=== PATIENT | male | born 1940 | race African-American/Black ===

== ENCOUNTER 2017-10-14 03:53 | Inpatient (IN) ==
[2017-10-14] MEDS ORDERED: Ipratropium/Albuterol Neb 3 ML IH ONE (04:08)
[2017-10-14] MEDS ORDERED: methylPREDNISolone 125 MG/2 ML VIAL IVP ONE (04:09)
--- NOTE | 2017-10-14 04:10 | Emergency Department Note ---
Disposition Clinical Impression: Acute bronchitis with bronchospasm, Hypoxia Disposition: Admitted As Inpatient Condition: Fair Time of Disposition: 05:15 SOB HPI - General Chief Complaint: ED Shortness of Breath/Dyspnea Stated Complaint: TIMOTHY Time Seen by Provider: 10/14/17 04:02 Source: patient Limitations: no limitations Nursing Notes Reviewed: Yes Vital Signs Reviewed: Yes - History of Present Illness 77-year-old male history of CAD status post bypass, hypertension, and renal disease presents to the ED for difficulty breathing. States around 1999 last night he began to feel sure breath with some difficulty in breathing. He used is inhalers to see if improved which it did not. Recently was seen by his primary care physician given in an inhaler. Reports significant smoking history which she has now stopped smoking. He is having some chest tightness associated with it. This occurred while at rest. No exertional pain. Denies any history of COPD exacerbation. He did just recently recover from a viral illness. Denies any fever, headache, nausea, vomiting or abdominal pain. He has a nonproductive dry cough. Denies any recent long-distance travel, surgery or hospitalizations. Denies any history of blood clots. Pt Subjective Complaint: shortness of breath, cough, pain with inspiration Onset (ago): hour(s) Context: recent illness Severity: moderate Treatment prior to arrival: bronchodilator Cough present: Yes Cough Description: Involuntary, Dry, Bronchospastic, Wheezy Cough Frequency: Persistent Sputum production: No Sputum Amount: None - Related Data Home oxygen amount: none Home Medications Medication Instructions Recorded Confirmed Acetaminophen [Tylenol] 325 mg PO Q6HR PRN 09/21/15 04/05/16 Aliskiren [Tekturna] 300 mg PO QAM 09/21/15 04/12/16 Allopurinol [Zyloprim] 100 mg PO QAM 09/21/15 04/12/16 Aspirin Enteric Coated [Aspirin EC] 81 mg PO QPM 09/21/15 04/12/16 Calcium Carbonate/Vitamin D3 1 each PO QAM 09/21/15 04/12/16 [Calcium 600 + D Tablet] Cholecalciferol (Vitamin D3) 2,000 unit PO BID 09/21/15 04/12/16 [Vitamin D] Clopidogrel [Plavix] 75 mg PO QPM 09/21/15 04/12/16 Docosahexanoic Acid/Epa [Fish Oil 1,000 mg PO QID 09/21/15 04/12/16 Concentrate Softgel] Gabapentin [Neurontin] 600 mg PO QID 09/21/15 04/12/16 Hydrocodone/Acetaminophen [[place] 1 tab PO Q6H PRN 09/21/15 04/12/16 5-325 Tablet] Nitroglycerin [Nitrostat] 0.4 mg SL AD PRN 09/21/15 04/12/16 Pantoprazole Sodium [Protonix] 40 mg PO QPM 09/21/15 04/12/16 Potassium Chloride 20 meq PO BID 09/21/15 04/12/16 amLODIPine [Norvasc] 10 mg PO QPM 09/21/15 04/12/16 hydroCHLOROthiazide 50 mg PO QAM 09/21/15 04/12/16 [Hydrochlorothiazide] Carvedilol [Coreg] 12.5 mg PO BID 03/21/16 04/12/16 Ferrous Sulfate [Iron] 325 mg PO DAILY 03/21/16 04/12/16 Previous Rx's Medication Instructions Recorded Isosorbide MONOnitrate (24 HR) 60 mg PO DAILY #30 tab.er.24h 09/22/15 [Imdur] Amoxicillin 875 mg PO BID #14 tablet 06/16/16 Doxycycline 100 mg PO BID #14 capsule 06/16/16 L. Acidophilus/L.bulgaricus 1 each PO BID #60 tab.chew 06/16/16 [Lactinex Chewable Tablet] Promethazine [Phenergan] 25 mg PO Q6HR PRN #10 tablet 08/08/17 Allergies Allergy/AdvReac Type Severity Reaction Status Date / Time Erythromycin Base Allergy Anaphylaxis Verified 09/21/15 16:21 ibuprofen Allergy Hives Verified 09/21/15 16:21 Tetanus Vaccines and Toxoid Allergy Anaphylaxis Verified 09/21/15 16:21 [Tetanus Vaccines & Toxoid] nsaids Allergy Hives Uncoded 09/21/15 16:21 All systems ED: reviewed and negative except as stated. Review of Systems: As Per HPI Constitutional: Denies: fever, chills Eyes: Denies: eye pain, vision change ENT ED: Denies: throat pain, congestion Cardiovascular: Reports: chest pain, dyspnea on exertion Respiratory: Reports: cough, dyspnea, wheezes. Denies: hemoptysis, stridor Gastrointestinal: Denies: abdominal pain, nausea, vomiting Genitourinary: Denies: urgency, dysuria Musculoskeletal: Denies: back pain, neck pain Integumentary: Denies: rash, abrasion Neurological: Denies: headache, weakness, numbness Psychiatric: Denies: anxiety, depression Endocrine: Denies: fatigue, heat or cold intolerance Allergic/Immunologic: Denies: facial swelling, urticaria Past Medical History - Past Medical History Attestation: Yes The following information was validated with the patient. Source: patient Medical history: Reports: coronary artery disease, CVA, hyperlipidemia, hypertension, myocardial infarction, renal disease, TIA Surgical history: Reports: carotid endarterectomy, cataract, coronary bypass ( CABG) Psychiatric history: Reports: no psych history - Social History Smoking Status: Never smoker Smokeless Tobacco Status: No Alcohol use: Reports: none Drug use: Reports: none Physical Exam - General Limitations: no limitations General appearance: alert, in no apparent distress - Head Head exam: atraumatic, normocephalic, normal inspection - Eye Eye exam: Present: normal appearance, PERRL, EOMI - ENT ENT exam: normal exam, normal oropharynx, mucous membranes moist - Neck Neck exam: Present: normal inspection, full ROM, trachea midline - Chest Chest inspection: Present: normal inspection, symmetric chest wall rise, other ( Midsternal incision consistent with bypass). Absent: tenderness, rash - Respiratory Respiratory exam: Present: respiratory distress, wheezes (Diffuse bilateral), prolonged expiratory phase - Expanded Respiratory Exam Location: wheezes: Right, Left - Cardiovascular Cardiovascular exam: Present: regular rate, normal rhythm, normal heart sounds - Abdominal Exam Abdominal exam: Present: soft, Non-Tender, normal bowel sounds. Absent: tenderness, distention, guarding, rebound, rigidity - Extremities Exam Extremities exam: Present: normal inspection, full ROM. Absent: tenderness, pedal edema - Back Exam Back exam: Present: normal inspection, full ROM. Absent: tenderness - Neurological Exam Neurological exam: Present: alert, oriented X3 - Skin Skin exam: Present: warm, dry, intact, normal color Course Course Narrative: 77-year-old male history of coronary arterial disease presents with difficulty breathing. He has some associated chest tightness as well as audible wheezing. He comes in hypoxic 90% placed on 2 L nasal cannula. He denies any history of DVT or PE. Most of his chest tightness associated with the breathing. A breathing treatment was given he reports some improvement. Concerning for possible COPD exacerbation. Patient will be given IV steroids as well as chest x-ray, basic labs in the troponin with EKG. 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 Dr. Bourgeois is his PCP. Will reassess the patient for possible admission versus discharge home. - Reevaluation(s) Reevaluation #1: On reevaluation patient has now 97% on 2 L nasal cannula. He continues to have some expiratory wheezing however much improved from earlier. Chest x-ray does not reveal any cardiopulmonary process. Findings are consistent with hyperinflation and COPD. EKG was unremarkable. Troponin 0. It appears he has underlying kidney disease with elevated creatinine 3.5. BNP is unremarkable. His blood pressure continues to come down from his initial systolic 200 to now 160 without any intervention. He continues to have a persistent dry bronchospasm cough. Will attempt to ambulate the patient without oxygen and he will likely need admission for COPD exacerbation. Patient and are in agreement with this plan. Time: 04:54 Reevaluation #2: I ambulated the patient and his oxygen saturation fell to 88% on room air. During that time he did deny any lightheadedness, chest pain or shortness of breath. However due to the hypoxia patient will need admission for better symptom control and management. Will give him [id number] duonebs treatments and steroids. Patients in agreement with this plan. Impression is acute bronchitis with bronchospasm and hypoxia. Time: 05:14 - Consultations Consultation #1: Spoke with on-call hospitalist albertina Mcclelland to admit for acute bronchitis, hypoxia, and bronchospasm. No further orders at this time Time: 05:41 Vital Signs Temperature 98.0 F 10/14/17 03:56 Pulse Rate 95 10/14/17 03:56 Respiratory Rate 24 10/14/17 03:56 Blood Pressure 191/86 10/14/17 03:56 O2 Sat by Pulse Oximetry 90 10/14/17 03:56 Temperature 98.0 F 10/14/17 03:56 Pulse Rate 73 10/14/17 05:33 Respiratory Rate 18 10/14/17 06:04 Blood Pressure 165/70 10/14/17 06:04 O2 Sat by Pulse Oximetry 97 11/21/17 05:33 Oxygen Delivery Oxygen Delivery Nasal Cannula Shortness of Breath/Dyspnea - Differential Diagnosis Likely: acute exacerbation of chronic obstructive airways disease - Medical Records Medical records reviewed: Yes I reviewed the patient's medical records. - Lab Data Lab results reviewed: Yes I reviewed the patient's lab results. Result diagrams: 10/14/17 04:15 10/14/17 04:15 Lab Results 10/14/17 10/14/17 10/14/17 Range/Units 04:15 04:15 04:15 WBC 8.9 (4.3-11.1) K/mcL RBC 3.96 L (4.19-5.50) M/mcL Hgb 11.4 L (12.9-16.9) g/dL Hct 36.0 L (37.5-50.1) % MCV 90.9 (83.0-100.0) fL MCH 28.8 (28.0-33.3) pg MCHC 31.7 (31.6-35.5) g/dL RDW 14.2 (11.5-14.5) % Plt Count 244 (140-400) K/mcL MPV 10.0 (9.4-12.4) fL Immature Gran % 0.3 (0-4) % Seg Neutrophils % 52.8 % Lymphocytes % 28.2 % Monocytes % 8.4 % Eosinophils % 9.8 % Basophils % 0.5 % Neutrophils # 4.7 (1.6-8.9) K/mcL Lymphocytes # 2.5 (0.6-4.6) K/mcL Monocytes # 0.7 (0.0-1.3) K/mcL Eosinophils # 0.9 H (0.0-0.6) K/mcL Basophils # 0.0 (0.0-0.2) K/mcL Sodium 137 (136-145) mEq/L Potassium 5.0 H (3.5-4.5) mEq/L Chloride 105 (98-109) mEq/L Carbon Dioxide 24 (19-29) mEq/L BUN 49 H (8-26) mg/dL Creatinine 3.10 H (0.72-1.25) mg/dL Est GFR ( Amer) 24 L (> 60) Est GFR (Non-Af Amer) 20 L (> 60) BUN/Creatinine Ratio 16 (6-26) Glucose 113 H (70-99) mg/dL Calculated Osmolality 298 (280-300) Lactic Acid 1.2 (0.5-2.2) mmol/L Calcium 9.5 (8.6-10.8) mg/dL Troponin I (0-0.03) ng/mL B-Natriuretic Peptide (0-100) pg/mL 10/14/17 10/14/17 Range/Units 04:15 04:15 WBC (4.3-11.1) K/mcL RBC (4.19-5.50) M/mcL Hgb (12.9-16.9) g/dL Hct (37.5-50.1) % MCV (83.0-100.0) fL MCH (28.0-33.3) pg MCHC (31.6-35.5) g/dL RDW (11.5-14.5) % Plt Count (140-400) K/mcL MPV (9.4-12.4) fL Immature Gran % (0-4) % Seg Neutrophils % % Lymphocytes % % Monocytes % % Eosinophils % % Basophils % % Neutrophils # (1.6-8.9) K/mcL Lymphocytes # (0.6-4.6) K/mcL Monocytes # (0.0-1.3) K/mcL Eosinophils # (0.0-0.6) K/mcL Basophils # (0.0-0.2) K/mcL Sodium (136-145) mEq/L Potassium (3.5-4.5) mEq/L Chloride (98-109) mEq/L Carbon Dioxide (19-29) mEq/L BUN (8-26) mg/dL Creatinine (0.72-1.25) mg/dL Est GFR ( Amer) (> 60) Est GFR (Non-Af Amer) (> 60) BUN/Creatinine Ratio (6-26) Glucose (70-99) mg/dL Calculated Osmolality (280-300) Lactic Acid (0.5-2.2) mmol/L Calcium (8.6-10.8) mg/dL Troponin I 0.01 (0-0.03) ng/mL B-Natriuretic Peptide 141 H (0-100) pg/mL - Radiology Data Radiology results reviewed: Yes I reviewed the patient's radiology results. Chest X-Ray 10/14/17 04:02 IMPRESSION: No acute cardiopulmonary process identified. D/ / Rosales Marques MD / Rosales Marques MD Interpreting Provider: Rosales Marques MD - EKG Data EKG attestation: Yes I reviewed and interpreted this EKG. EKG results narrative: EKG performed 405 sinus tachycardia 10 1 bpm normal axis, UT interval 200, no ST elevations or depression, no T wave inversion. Intervals are otherwise in normal limits. No old EKG for comparison. No acute ischemic changes. Attestation Statement - Attestation Attestation: I, Mj Barkley, examined this patient and my medical decision-making was reviewed with the MANAGER DENTAL/PA/Advanced Practice Nurse/Resident Physician. I agree with the documented findings, disposition and treatment plan as described except to the extent set forth below. 77-year-old male presents emergency Department with concerns of difficulty in breathing. Patient states symptoms have worsened over the past 2-3 days. Patient has no history of congestive heart failure although he does have a long history of tobacco abuse. Patient describes cough is nonproductive. X-ray does not show evidence of acute infiltrate. Patient feels improved after breathing treatment in emergency department. Patient however desatted to 88% during ambulation. He will be admitted to the hospital for further care and evaluation.
[2017-10-14 04:33] LABS: Basophils % 0.5 %; Eosinophils # 0.9 K/mcL (0.0-0.6); Eosinophils % 9.8 %; Hemoglobin 11.4 g/dL (12.9-16.9); Immature Granulocytes % 0.3 % (0-4); Lymphocytes # 2.5 K/mcL (0.6-4.6); Lymphocytes % 28.2 %; Mean Corpuscular HGB Conc 31.7 g/dL (31.6-35.5); Mean Corpuscular Hemoglobin 28.8 pg (28.0-33.3); Mean Corpuscular Volume 90.9 fL (83.0-100.0); Monocytes # 0.7 K/mcL (0.0-1.3); Monocytes % 8.4 %; Neutrophils # 4.7 K/mcL (1.6-8.9); Platelet Count 244 K/mcL (140-400); Red Blood Count 3.96 M/mcL (4.19-5.50); Red Cell Distribution Width 14.2 % (11.5-14.5); Segmented Neutrophils % 52.8 %
[2017-10-14 04:38] LABS: Calcium 9.5 mg/dL (8.6-10.8)
[2017-10-14] MEDS ORDERED: Acetaminophen 325 MG TABLET PO PRN (07:49)
[2017-10-14] MEDS ORDERED: Naloxone 0.4 MG/ML INJ IVP PRN (07:49)
--- NOTE | 2017-10-14 07:49 | Internal Med History&Physical ---
Date of Encounter: 10/14/17 Time of Encounter: 07:49 Assessment and Plan (1) COPD exacerbation Current visit: Yes Status: Acute 77/male Multiple medical comorbid issues described as below. Admitted with worsening shortness of breath along with cough and expectoration. Persistently hypoxic in the emergency room in spite of being on steroids/ bronchodilator. Admitted for possible new onset of COPD exacerbation. Plan: -Admitted as an inpatient. -Renal diet. -Blood cultures/repeat labs tomorrow morning. -IV levofloxacin 250 mg every day. -IV methylprednisone 40 mg every 8 hours. -Inhaled bronchodilators every 4 hours. -Close monitoring of respiratory status. -Might need outpatient pulmonary function test for further evaluation. Of note: I examined this patient in room #3 B 12 Patient's is at bedside. I have discussed the plan with the patient and his . They verbalize understanding. (2) Hypoxia Current visit: Yes Status: Acute Patient does not use home oxygen. With 2 L of oxygen, patient's saturation is 94-95 Plan: Gradually wean off the oxygen if possible (3) Hypertension Current visit: Yes Status: Acute We will resume home medication. Qualifiers: Hypertension type: essential hypertension Qualified Code(s): I10 - Essential (primary) hypertension (4) Hyperlipidemia Current visit: Yes Status: Acute We will resume home medication. Qualifiers: Hyperlipidemia type: unspecified Qualified Code(s): E78.5 - Hyperlipidemia , unspecified (5) CRI (chronic renal insufficiency) Current visit: No Status: Chronic Patient is following with Dr. Sher for his chronic renal insufficiency. Patient is going to be on levofloxacin 250 mg every day as per Dr. Sher. Plan: Nephrology consult for close monitoring of patient's creatinine since he is on nephrotoxic medication Qualifiers: Chronic kidney disease stage: stage 4 (severe) Qualified Code(s): N18.4 - Chronic kidney disease, stage 4 (severe) (6) DVT prophylaxis Current visit: Yes Status: Acute SCD. Medical decision making: This patient has a moderate to severe risk of worsening in spite of being on appropriate antibiotics/medication due to underlying complex comorbid conditions Internal Medicine - H&P: HPI Chief complaint: Short of breath Admitted From: Emergency Dept Plans for Post Hospital Care: Home History of present illness: PCP: Dr Chavira. Nephrology: Dr Sher. POA: Ms. Samira Waller: Brief PMH: Hypertension, coronary artery disease, hyperlipidemia, CKD IV, previous coronary artery bypass graft surgery, previous carotid endarterectomy, previous TIA/CVA, patient was asked smoker and stopped smoking in 1970s. History of present medical illness: Patient is comfortably sitting at home yesterday. Patient realizes that he is having difficulty in breathing around 8 PM. Patient realized that the breathing is progressively difficult along with worsening cough and occasional wheezing. Patient tried some home remedies but that did not help. So in the night patient's decided to drove him to the hospital emergency room for further evaluation. Patient denies chest pain, nausea, vomiting, abdominal pain, dizziness and diarrhea. Workup in the emergency room: Patient was evaluated in the emergency room. Basic labs were drawn. X-ray chest did not reveal any infiltrates. After the steroids and bronchodilators patient was made a walk in the emergency room. At that time patient's oxygen saturation dropped to 88%. This was the reason he was decided to hospitalize. Reason for hospitalization: Possible new onset of COPD/hyperreactive airways along with hypoxia which needs intravenous medications and close monitoring. Family history: See below Past Med Surg Social Fam HX - Past Medical History Medical history: coronary artery disease, CVA, hyperlipidemia, hypertension, myocardial infarction, renal disease, TIA Psychiatric history: no psych history - Past Surgical History Surgical History: carotid endarterectomy, cataract, coronary bypass (CABG) - Social History Smoking Status: Never smoker Smokeless Tobacco Status: No Alcohol use: none Drug use: none - Family History Father Living Status: Age at : 96 Hx Family Cardiac Disorders: No Hx Family Respiratory Disorders: No Hx Family Cancer: No Hx Family GI Disorders: No Hx Family Genitourinary Disorders: No Hx Family Endocrine Disorder: No Hx Family Musculoskeletal Disorders: No Hx Family Neuromuscular Disorders: No Hx Family Neurologic Disorders: Yes (cva) Hx Family HEENT Disorders: No Hx Family Autoimmune Disorders: No Hx Family Reproductive Disorders: No Hx Family Psychosocial Disorders: No Hx Family Medical Disorders: No Mother Adopted: No Living Status: Age at : 82 Cause of : cirrohois of the liver Hx Family Cardiac Disorders: No Hx Family Respiratory Disorders: No Hx Family Cancer: Yes (breast) Hx Family GI Disorders: (cirrohois) Hx Family Genitourinary Disorders: No Hx Family Endocrine Disorder: Yes (dm) Hx Family Musculoskeletal Disorders: No Hx Family Neuromuscular Disorders: No Hx Family Neurologic Disorders: No Hx Family HEENT Disorders: No Hx Family Autoimmune Disorders: No Hx Family Reproductive Disorders: No Hx Family Psychosocial Disorders: No Hx Family Medical Disorders: No Daughter Hx Family Cardiac Disorders: Yes Internal Medicine - H&P: Meds Acetaminophen [Tylenol] 325 mg PO Q6HR PRN 09/21/15 [History] Aliskiren [Tekturna] 300 mg PO QAM 09/21/15 [History] Allopurinol [Zyloprim] 100 mg PO QAM 09/21/15 [History] Aspirin Enteric Coated [Aspirin EC] 81 mg PO QPM 09/21/15 [History] Calcium Carbonate/Vitamin D3 [Calcium 600 + D Tablet] 1 each PO QAM 09/21/15 [ History] Cholecalciferol (Vitamin D3) [Vitamin D] 2,000 unit PO BID 09/21/15 [History] Clopidogrel [Plavix] 75 mg PO QPM 09/21/15 [History] Docosahexanoic Acid/Epa [Fish Oil Concentrate Softgel] 1,000 mg PO QID 09/21/15 [History] Gabapentin [Neurontin] 600 mg PO QID 09/21/15 [History] Hydrocodone/Acetaminophen [[place] 5-325 Tablet] 1 tab PO Q6H PRN 09/21/15 [ History] Nitroglycerin [Nitrostat] 0.4 mg SL AD PRN 09/21/15 [History] Pantoprazole Sodium [Protonix] 40 mg PO QPM 09/21/15 [History] Potassium Chloride 20 meq PO BID 09/21/15 [History] amLODIPine [Norvasc] 10 mg PO QPM 09/21/15 [History] hydroCHLOROthiazide [Hydrochlorothiazide] 50 mg PO QAM 09/21/15 [History] Isosorbide MONOnitrate (24 HR) [Imdur] 60 mg PO DAILY #30 tab.er.24h 09/22/15 [ Rx] Carvedilol [Coreg] 12.5 mg PO BID 03/21/16 [History] Ferrous Sulfate [Iron] 325 mg PO DAILY 03/21/16 [History] L. Acidophilus/L.bulgaricus [Lactinex Chewable Tablet] 1 each PO BID #60 tab.chew 06/16/16 [Rx] Albuterol Sulfate [Ventolin Hfa] 1 - 2 puff IH Q4-6H PRN 10/14/17 [History] Pravastatin Sodium [Pravachol] 40 mg PO DAILY 10/14/17 [History] 3 Allergy/AdvReac Type Severity Reaction Status Date / Time Erythromycin Base Allergy Anaphylaxis Verified 09/21/15 16:21 ibuprofen Allergy Hives Verified 09/21/15 16:21 Tetanus Vaccines and Toxoid Allergy Anaphylaxis Verified 09/21/15 16:21 [Tetanus Vaccines & Toxoid] nsaids Allergy Hives Uncoded 09/21/15 16:21 All Systems PM: A 10-system review of systems was performed and is negative for pertinent findings except as documented above in the HPI. - Constitutional Constitutional: no chills, no fever(s), no night sweats - EENT Eyes: no change in vision, no discharge, no pain, no photophobia Ears: no ear discharge, no ear pain, no tinnitus Nose, mouth and throat: no dysphagia, no nasal discharge, no neck pain, no sore throat - Cardiovascular Cardiovascular ROS IM: no chest pain, no diaphoresis, no dyspnea, no lightheadedness, no palpitations, no syncope - Respiratory Respiratory: cough, dyspnea, wheezing, chest congestion, pain with cough, no excessive phlegm production - Gastrointestinal Gastrointestinal: no abdominal pain, no diarrhea, no hematemesis, no hematochezia, no melena, no nausea, no vomiting - Musculoskeletal Musculoskeletal ROS IM: no numbness, no tingling - Integumentary Integumentary IM: no rash, no unusual bruising - Neurological Neurological ROS: no confusion, no convulsions, no focal weakness, no numbness, no tingling, no tremor(s) - Hematologic/Lymphatic Hematologic/Lymphatic: no easy bruising - Constitutional Vitals: Temp Pulse Resp BP Pulse Ox 98.3 F 75 16 181/76 95 10/14/17 06:28 10/14/17 06:28 10/14/17 06:28 10/14/17 06:28 10/14/17 07:23 General appearance: Present: A&O X 3, pleasant, no acute distress, answers questions appropriately - Head Head exam: Present: atraumatic, normocephalic - Eye Eye exam: Present: PERRL, conjuntiva pink, sclera anicteric Pupils: Present: PERRL - Neck Neck exam general surgery: Present: supple, trachea midline. Absent: lymphadenopathy - Respiratory Respiratory exam: Present: CTAB, rhonchi, wheezes. Absent: accessory muscle use , rales - Cardiovascular Cardiovascular exam: Present: RRR, +S1, +S2. Absent: diastolic murmur, gallop, rubs, systolic murmur - GI/Abdominal GI/Abdominal exam: Present: normal bowel sounds, soft, no peritoneal signs. Absent: distended, tenderness - Extremities Exam Extremities exam: Present: warm, radial pulses palpable and symmetrical. Absent : calf tenderness, cyanotic, pedal edema - Neurological Exam Neurological exam: Present: CN II-XII intact, oriented X3, no focal deficits. Absent: pronater drift, facial droop, speech deficit - Skin Skin exam: Present: dry, intact Internal Med - H&P Results - Labs CBC & Chem 7: 10/14/17 04:15 10/14/17 04:15
[2017-10-14] MEDS ORDERED: *HR* HYDROcodone/Acet 5/325 mg TABLET PO PRN (07:59)
[2017-10-14] MEDS ORDERED: Nitroglycerin 0.4 MG TAB.SUBL SL PRN (07:59)
[2017-10-14] MEDS ORDERED: Levofloxacin 250 MG/50 ML 250 MG/50 ML BAG IVPB SCH (08:00)
[2017-10-14] MEDS: Levofloxacin 250 MG/50 ML 250 MG/50 ML BAG IVPB SCH (08:51)
[2017-10-14] MEDS: MethylPREDNISolone 40 MG/ML VIAL IVP SCH ×2 (08:52→17:36)
[2017-10-14] MEDS: Isosorbide MONOnitrate (24 HR) 60 MG TAB.ER.24H PO SCH (08:52)
[2017-10-14] MEDS: hydroCHLOROthiazide 25 MG TABLET PO SCH (08:52)
[2017-10-14] MEDS: Gabapentin 300 MG CAPSULE PO SCH ×4 (08:52→19:55)
[2017-10-14] MEDS: EPA PO SCH ×4 (08:53→19:55)
[2017-10-14] MEDS: Cholecalciferol (D-3) 1,000 UNIT TABLET PO SCH ×2 (08:53→19:54)
[2017-10-14] MEDS: VITAMIN D3 PO SCH (08:53)
[2017-10-14] MEDS: ALISKIREN 300 MG PO SCH (08:53)
[2017-10-14] MEDS: CALCIUM CARBONATE PO SCH (08:53)
[2017-10-14] MEDS: DOCOSAHEXANOIC ACID PO SCH ×4 (08:53→19:55)
[2017-10-14] MEDS: Ipratropium/Albuterol Neb 3 ML IH SCH ×4 (10:27→20:29)
--- NOTE | 2017-10-14 11:37 | Nephrology Consult Note ---
<Becka Riddle Mehul - Last Filed: 10/14/17 11:44> Date of Encounter: 10/14/17 Time of Encounter: 11:31 Assessment and Plan (1) CKD (chronic kidney disease) stage 4, GFR 15-29 ml/min Status: Acute Scr 3.10, GFR 24-patient at his baseline kidney function; will continue to monitor closely Continue renal diet UA, urine protein creatinine ratio, urine microalbumin, PTH, Vitamin D 25-OH Strict I/Os Avoid nephrotoxins if possible (2) Hypertension Status: Acute per primary team May need to add Hydralazine prn for elevated blood pressure Qualifiers: Hypertension type: essential hypertension Qualified Code(s): I10 - Essential (primary) hypertension (3) COPD exacerbation Status: Acute per primary team History of Present Illness - Reason for Consult Consult date: 10/14/17 - Chief Complaint COPD exacerbation, CKD stage 4 - History of Present Illness Mr Hillman is a 77 year old male who is a patient of Dr lBack for his CKD stage 4. PMH includes hypertension, coronary artery disease, hyperlipidemia, CKD stage IV, previous coronary artery bypass graft surgery, previous carotid endarterectomy, previous TIA/CVA, patient is a former smoker who stopped smoking in 1970s. Patient was having difficulty breathing along with worsening cough and occasional wheezing. Patient tried some home remedies but that did not help. He has been admitted for COPD and nephrology has been asked to monitor his kidney function during this hospitalization. Currently patient is at his baseline kidney function. Past Med Surg Social Fam HX - Past Medical History Medical history: coronary artery disease, CVA, hyperlipidemia, hypertension, myocardial infarction, renal disease, TIA Psychiatric history: no psych history - Past Surgical History Surgical History: carotid endarterectomy, cataract, coronary bypass (CABG) - Social History Smoking Status: Never smoker Smokeless Tobacco Status: No Alcohol use: none Drug use: none - Family History Father Living Status: Age at : 96 Hx Family Cardiac Disorders: No Hx Family Respiratory Disorders: No Hx Family Cancer: No Hx Family GI Disorders: No Hx Family Genitourinary Disorders: No Hx Family Endocrine Disorder: No Hx Family Musculoskeletal Disorders: No Hx Family Neuromuscular Disorders: No Hx Family Neurologic Disorders: Yes (cva) Hx Family HEENT Disorders: No Hx Family Autoimmune Disorders: No Hx Family Reproductive Disorders: No Hx Family Psychosocial Disorders: No Hx Family Medical Disorders: No Mother Adopted: No Living Status: Age at : 82 Cause of : cirrohois of the liver Hx Family Cardiac Disorders: No Hx Family Respiratory Disorders: No Hx Family Cancer: Yes (breast) Hx Family GI Disorders: (cirrohois) Hx Family Genitourinary Disorders: No Hx Family Endocrine Disorder: Yes (dm) Hx Family Musculoskeletal Disorders: No Hx Family Neuromuscular Disorders: No Hx Family Neurologic Disorders: No Hx Family HEENT Disorders: No Hx Family Autoimmune Disorders: No Hx Family Reproductive Disorders: No Hx Family Psychosocial Disorders: No Hx Family Medical Disorders: No Daughter Hx Family Cardiac Disorders: Yes Medications and Allergies Acetaminophen [Tylenol] 325 mg PO Q6HR PRN 09/21/15 [History] Aliskiren [Tekturna] 300 mg PO QAM 09/21/15 [History] Allopurinol [Zyloprim] 100 mg PO QAM 09/21/15 [History] Aspirin Enteric Coated [Aspirin EC] 81 mg PO QPM 09/21/15 [History] Calcium Carbonate/Vitamin D3 [Calcium 600 + D Tablet] 1 each PO QAM 09/21/15 [ History] Cholecalciferol (Vitamin D3) [Vitamin D] 2,000 unit PO BID 09/21/15 [History] Clopidogrel [Plavix] 75 mg PO QPM 09/21/15 [History] Docosahexanoic Acid/Epa [Fish Oil Concentrate Softgel] 1,000 mg PO QID 09/21/15 [History] Gabapentin [Neurontin] 600 mg PO QID 09/21/15 [History] Hydrocodone/Acetaminophen [[place] 5-325 Tablet] 1 tab PO Q6H PRN 09/21/15 [ History] Nitroglycerin [Nitrostat] 0.4 mg SL AD PRN 09/21/15 [History] Pantoprazole Sodium [Protonix] 40 mg PO QPM 09/21/15 [History] Potassium Chloride 20 meq PO BID 09/21/15 [History] amLODIPine [Norvasc] 10 mg PO QPM 09/21/15 [History] hydroCHLOROthiazide [Hydrochlorothiazide] 50 mg PO QAM 09/21/15 [History] Isosorbide MONOnitrate (24 HR) [Imdur] 60 mg PO DAILY #30 tab.er.24h 09/22/15 [ Rx] Ferrous Sulfate [Iron] 325 mg PO DAILY 03/21/16 [History] L. Acidophilus/L.bulgaricus [Lactinex Chewable Tablet] 1 each PO BID #60 tab.chew 06/16/16 [Rx] Albuterol Sulfate [Ventolin Hfa] 1 - 2 puff IH Q4-6H PRN 10/14/17 [History] Pravastatin Sodium [Pravachol] 40 mg PO DAILY 10/14/17 [History] Carvedilol [Coreg] 25 mg PO BIDWM #60 tablet 10/17/17 [Rx] levoFLOXacin [Levaquin] 500 mg PO DAILY #5 tablet 10/17/17 [Rx] Polyethylene Glycol 3350 [MiraLAX] 17 gm PO DAILY #7 powd.pack 10/24/17 [Rx] 3 Allergy/AdvReac Type Severity Reaction Status Date / Time Erythromycin Base Allergy Anaphylaxis Verified 09/21/15 16:21 ibuprofen Allergy Hives Verified 09/21/15 16:21 Tetanus Vaccines and Toxoid Allergy Anaphylaxis Verified 09/21/15 16:21 [Tetanus Vaccines & Toxoid] Hydralazine AdvReac Headache Verified 10/24/17 15:53 nsaids Allergy Hives Uncoded 09/21/15 16:21 Review of Systems All Systems: reviewed and no additional remarkable complaints except as stated Constitutional: fatigue, malaise, no chills, no fever(s) Cardiovascular: no chest pain, no edema Respiratory: cough, dyspnea, dyspnea on exertion, wheezing Gastrointestinal: no vomiting Neurological: no behavioral changes Exam - Vital Signs Vital signs: Initial Vital Signs Temp Pulse Resp BP Pulse Ox 98.0 F 95 24 191/86 90 10/14/17 03:56 10/14/17 03:56 10/14/17 03:56 10/14/17 03:56 10/14/17 03:56 Vital Signs - Last 8 Hours Resp Pulse Ox 10/14/17 11:10 16 95 Intake and Output 10/13/17 10/14/17 10/14/17 23:59 07:59 15:59 Intake Total 120 / 120 Balance 120 / 120 Intake: Oral 120 / 120 Other: Meal Breakfast Percent of Meal Consumed 50% - General Appearance General appearance: well-developed, well-nourished EENT: ATNC, mucous membranes moist, hearing intact, vision intact Neck: supple Respiratory: clear Cardiology: no edema, normal S1, normal S2 Gastrointestinal: no tenderness, no guarding Integumentary: warm and dry Neurologic: alert and oriented x3 Psychiatric: mood/affect appropriate, cooperative Results - Lab Results 10/14/17 04:15 10/14/17 04:15 Most recent lab results Calcium 9.5 mg/dL (8.6-10.8) 10/14/17 04:15 Consult Discharge Plan - Plan Instructions: Chest Pain (DC) Referrals: Parker Bourgeois DO [Primary Care Provider] - 10/21/17 9:45 am Prescriptions: Carvedilol [Coreg] 25 mg PO BIDWM #60 tablet levoFLOXacin [Levaquin] 500 mg PO DAILY #5 tablet <Tianna Black - Last Filed: 10/25/17 23:57> Date of Encounter: 10/14/17 Exam - Vital Signs Vital signs: Initial Vital Signs Temp Pulse Resp BP Pulse Ox 98.0 F 95 24 191/86 90 10/14/17 03:56 10/14/17 03:56 10/14/17 03:56 10/14/17 03:56 10/14/17 03:56 Results - Lab Results 10/15/17 02:54 10/15/17 02:54 Most recent lab results Calcium 9.2 mg/dL (8.6-10.8) 10/15/17 02:54 Phosphorus 2.2 mg/dL (2.3-4.7) L 10/15/17 02:54 Magnesium 1.7 mg/dL (1.6-2.6) 10/15/17 02:54 - Attending Attestation I examined this patient and my medical decision-making was reviewed with the Resident Physician. I agree with the documented findings, disposition and treatment plan as described except to the extent set forth below. Pt seen and examined with PMH of CAD s/p CABG, PVD s/p CEA, HTN and stage 4 CKD admitted with SOB with cough diagnosed with COPD exacerbation. Renal consulted for managment of CKD which is currently at baseline. May also need cardiac workup for mildly elevated troponin. Will check PTH and vitamin D levels. Manage HTN, tekturna home medication currently being held. Can use hydralazine prn
[2017-10-14 15:31] LABS: Bilirubin,Urine Negative (Negative); Blood,Urine Negative (Negative); Clarity,Urine Clear (Clear); Color,Urine Yellow (Yellow); Glucose,Urine (UA) Normal (Normal); Ketones,Urine Negative (Negative); Leukocyte Esterase,Urine Negative (Negative); Nitrite,Urine Negative (Negative); Protein,Urine Negative (Neg-Trace); Specific Gravity,Urine 1.018 (1.010-1.025); Urobilinogen,Urine Normal (Normal)
--- NOTE | 2017-10-14 17:31 | Internal Medicine Consult Note ---
Date of Encounter: 10/14/17 Time of Encounter: 04:30 Internal Medicine - CN: HPI - Data of Consult Consult date: 10/14/17 Requesting Physician: Becka Gerber CNP - Consult Narrative History of present illness: Mr. Waller is a 77 year old male PMH HTN, CAD, HLD, CKD-IV, previous triple bypass 2011, CEA bilateral 2011, previous TIA/CVA, former smoker (quit 45 years ago) who presented to the ED with new onset/worsening shortness of breath. Persistent hypoxia while in ED, admitted, tolerating 1L now >95 and RT with duoneb therapy. Consulted due to mild spike in troponin, .07, up from .02, now back down to .04. Patient reports shortness of breath at onset without chest pain, no jaw/arm paresthesias, or exertional discomfort. Past Med Surg Social Fam HX - Past Medical History Medical history: coronary artery disease, CVA, hyperlipidemia, hypertension, myocardial infarction, renal disease, TIA Psychiatric history: no psych history - Past Surgical History Surgical History: carotid endarterectomy, cataract, coronary bypass (CABG) - Social History Smoking Status: Never smoker Smokeless Tobacco Status: No Alcohol use: none Drug use: none - Family History Father Living Status: Age at : 96 Hx Family Cardiac Disorders: No Hx Family Respiratory Disorders: No Hx Family Cancer: No Hx Family GI Disorders: No Hx Family Genitourinary Disorders: No Hx Family Endocrine Disorder: No Hx Family Musculoskeletal Disorders: No Hx Family Neuromuscular Disorders: No Hx Family Neurologic Disorders: Yes (cva) Hx Family HEENT Disorders: No Hx Family Autoimmune Disorders: No Hx Family Reproductive Disorders: No Hx Family Psychosocial Disorders: No Hx Family Medical Disorders: No Mother Adopted: No Living Status: Age at : 82 Cause of : cirrohois of the liver Hx Family Cardiac Disorders: No Hx Family Respiratory Disorders: No Hx Family Cancer: Yes (breast) Hx Family GI Disorders: (cirrohois) Hx Family Genitourinary Disorders: No Hx Family Endocrine Disorder: Yes (dm) Hx Family Musculoskeletal Disorders: No Hx Family Neuromuscular Disorders: No Hx Family Neurologic Disorders: No Hx Family HEENT Disorders: No Hx Family Autoimmune Disorders: No Hx Family Reproductive Disorders: No Hx Family Psychosocial Disorders: No Hx Family Medical Disorders: No Daughter Hx Family Cardiac Disorders: Yes Internal Medicine - CN: Meds Acetaminophen [Tylenol] 325 mg PO Q6HR PRN 09/21/15 [History] Aliskiren [Tekturna] 300 mg PO QAM 09/21/15 [History] Allopurinol [Zyloprim] 100 mg PO QAM 09/21/15 [History] Aspirin Enteric Coated [Aspirin EC] 81 mg PO QPM 09/21/15 [History] Calcium Carbonate/Vitamin D3 [Calcium 600 + D Tablet] 1 each PO QAM 09/21/15 [ History] Cholecalciferol (Vitamin D3) [Vitamin D] 2,000 unit PO BID 09/21/15 [History] Clopidogrel [Plavix] 75 mg PO QPM 09/21/15 [History] Docosahexanoic Acid/Epa [Fish Oil Concentrate Softgel] 1,000 mg PO QID 09/21/15 [History] Gabapentin [Neurontin] 600 mg PO QID 09/21/15 [History] Hydrocodone/Acetaminophen [[place] 5-325 Tablet] 1 tab PO Q6H PRN 09/21/15 [ History] Nitroglycerin [Nitrostat] 0.4 mg SL AD PRN 09/21/15 [History] Pantoprazole Sodium [Protonix] 40 mg PO QPM 09/21/15 [History] Potassium Chloride 20 meq PO BID 09/21/15 [History] amLODIPine [Norvasc] 10 mg PO QPM 09/21/15 [History] hydroCHLOROthiazide [Hydrochlorothiazide] 50 mg PO QAM 09/21/15 [History] Isosorbide MONOnitrate (24 HR) [Imdur] 60 mg PO DAILY #30 tab.er.24h 09/22/15 [ Rx] Carvedilol [Coreg] 12.5 mg PO BID 03/21/16 [History] Ferrous Sulfate [Iron] 325 mg PO DAILY 03/21/16 [History] L. Acidophilus/L.bulgaricus [Lactinex Chewable Tablet] 1 each PO BID #60 tab.chew 06/16/16 [Rx] Albuterol Sulfate [Ventolin Hfa] 1 - 2 puff IH Q4-6H PRN 10/14/17 [History] Pravastatin Sodium [Pravachol] 40 mg PO DAILY 10/14/17 [History] 3 Allergy/AdvReac Type Severity Reaction Status Date / Time Erythromycin Base Allergy Anaphylaxis Verified 09/21/15 16:21 ibuprofen Allergy Hives Verified 09/21/15 16:21 Tetanus Vaccines and Toxoid Allergy Anaphylaxis Verified 09/21/15 16:21 [Tetanus Vaccines & Toxoid] nsaids Allergy Hives Uncoded 09/21/15 16:21 Internal Medicine - CN: Exam - Constitutional Vitals: Temp Pulse Resp BP Pulse Ox 98.0 F 86 15 102/63 96 10/14/17 15:05 10/14/17 15:05 10/14/17 15:46 10/14/17 15:05 10/14/17 15:46 Internal Medicine - CN: Reslt - Labs CBC & Chem 7: 10/14/17 04:15 10/14/17 04:15 Labs: Cardiac Enzymes 10/14/17 10/14/17 Range/Units 08:29 13:46 Troponin I 0.07 H* 0.04 H* (0-0.03) ng/mL Urine 10/14/17 Range/Units 15:20 Urine Color Yellow (Yellow) Urine Clarity Clear (Clear) Urine pH 6.0 (5.0-8.0) pH Units Ur Specific [place] 1.018 (1.010-1.025) Urine Protein Negative (Neg-Trace) mg/dL Urine Glucose (UA) Normal (Normal) mg/dL Consult Discharge Plan - Plan Referrals: Parker Bourgeois DO [Primary Care Provider] -
[2017-10-14] MEDS: amLODIPine 5 MG TABLET PO SCH (17:36)
--- NOTE | 2017-10-14 17:36 | Cardiology Consult Note ---
<Matt Bradley - Last Filed: 10/14/17 18:13> Date of Encounter: 10/14/17 Time of Encounter: 04:30 Assessment and Plan (1) Elevated troponin Current Visit: Yes Status: Acute Mild elevated troponin with peak at .07 likely secondary to recent hypoxia -ECG shows sinus tachycardia with no lead V1-V3 early repolarization, no ST elevation/depression -Poor R wave progression, seen in old ECGs -Patient plan to receive pharmacologic stress test tomorrow. (2) Hypoxia Current Visit: Yes Status: Acute Hypoxia resolve on duoneb, 2L O2 nasal cannula, no use of home O2 -CXR negative for acute pulmonary process -Prophylactic/Presumptive antibiotics being given by primary team (3) Hypertension Current Visit: Yes Status: Acute Continue Amlodipine, Carvedilol, HCTZ, Imdur, Aliskiren, possibly add hydralazine (pt gets headache on hydralazine) if pressures remain elevated. Continue close monitoring, [facility], 102/63. Qualifiers: Hypertension type: essential hypertension Qualified Code(s): I10 - Essential (primary) hypertension (4) CKD (chronic kidney disease) stage 4, GFR 15-29 ml/min Current Visit: Yes Status: Acute Per Nephrology consult, close monitor kidney function, control of blood pressure. (5) Hyperlipidemia Current Visit: Yes Status: Acute Continue Atorvastatin, no dose renal dosing adjustment required, consider increasing to high-intensity 40mg if patient can tolerate, can follow-up PCP. Known history extensive atherosclerosis requiring CABGx3; bilateral CEA Qualifiers: Hyperlipidemia type: unspecified Qualified Code(s): E78.5 - Hyperlipidemia , unspecified Discussion w patient/family: The assessment and plan as outlined above was discussed with the patient and/or family members who expressed understanding and agreement. All questions were answered. Thank you for involving us in the care of your patient. Please call with any questions. History of Present Illness Consult date: 10/14/17 Requesting physician: Valentin Mortensen Consult reason: Elevated troponin, peak .07 Chief complaint: Difficulty in Breathing History of present illness: Mr. Waller is a 77 year old male PMH HTN, CAD, HLD, CKD-IV, previous triple bypass 2011, CEA bilateral 2011, previous TIA/CVA, former smoker (quit 45 years ago) who presented to the ED with new onset/worsening shortness of breath. Persistent hypoxia while in ED, admitted, tolerating 1L now >95 and RT with duoneb therapy. Consulted due to mild spike in troponin, .07, up from .02, now back down to .04. Patient reports shortness of breath at onset without chest pain, no jaw/arm paresthesias, or exertional discomfort. Past Med Surg Social Fam HX - Past Medical History Medical history: coronary artery disease, CVA, hyperlipidemia, hypertension, myocardial infarction, renal disease, TIA Psychiatric history: no psych history - Past Surgical History Surgical History: carotid endarterectomy, cataract, coronary bypass (CABG) - Social History Smoking Status: Never smoker Smokeless Tobacco Status: No Alcohol use: none Drug use: none - Family History Father Living Status: Age at : 96 Hx Family Cardiac Disorders: No Hx Family Respiratory Disorders: No Hx Family Cancer: No Hx Family GI Disorders: No Hx Family Genitourinary Disorders: No Hx Family Endocrine Disorder: No Hx Family Musculoskeletal Disorders: No Hx Family Neuromuscular Disorders: No Hx Family Neurologic Disorders: Yes (cva) Hx Family HEENT Disorders: No Hx Family Autoimmune Disorders: No Hx Family Reproductive Disorders: No Hx Family Psychosocial Disorders: No Hx Family Medical Disorders: No Mother Adopted: No Living Status: Age at : 82 Cause of : cirrohois of the liver Hx Family Cardiac Disorders: No Hx Family Respiratory Disorders: No Hx Family Cancer: Yes (breast) Hx Family GI Disorders: (cirrohois) Hx Family Genitourinary Disorders: No Hx Family Endocrine Disorder: Yes (dm) Hx Family Musculoskeletal Disorders: No Hx Family Neuromuscular Disorders: No Hx Family Neurologic Disorders: No Hx Family HEENT Disorders: No Hx Family Autoimmune Disorders: No Hx Family Reproductive Disorders: No Hx Family Psychosocial Disorders: No Hx Family Medical Disorders: No Daughter Hx Family Cardiac Disorders: Yes Medications and Allergies Acetaminophen [Tylenol] 325 mg PO Q6HR PRN 09/21/15 [History] Aliskiren [Tekturna] 300 mg PO QAM 09/21/15 [History] Allopurinol [Zyloprim] 100 mg PO QAM 09/21/15 [History] Aspirin Enteric Coated [Aspirin EC] 81 mg PO QPM 09/21/15 [History] Calcium Carbonate/Vitamin D3 [Calcium 600 + D Tablet] 1 each PO QAM 09/21/15 [ History] Cholecalciferol (Vitamin D3) [Vitamin D] 2,000 unit PO BID 09/21/15 [History] Clopidogrel [Plavix] 75 mg PO QPM 09/21/15 [History] Docosahexanoic Acid/Epa [Fish Oil Concentrate Softgel] 1,000 mg PO QID 09/21/15 [History] Gabapentin [Neurontin] 600 mg PO QID 09/21/15 [History] Hydrocodone/Acetaminophen [[place] 5-325 Tablet] 1 tab PO Q6H PRN 09/21/15 [ History] Nitroglycerin [Nitrostat] 0.4 mg SL AD PRN 09/21/15 [History] Pantoprazole Sodium [Protonix] 40 mg PO QPM 09/21/15 [History] Potassium Chloride 20 meq PO BID 09/21/15 [History] amLODIPine [Norvasc] 10 mg PO QPM 09/21/15 [History] hydroCHLOROthiazide [Hydrochlorothiazide] 50 mg PO QAM 09/21/15 [History] Isosorbide MONOnitrate (24 HR) [Imdur] 60 mg PO DAILY #30 tab.er.24h 09/22/15 [ Rx] Carvedilol [Coreg] 12.5 mg PO BID 03/21/16 [History] Ferrous Sulfate [Iron] 325 mg PO DAILY 03/21/16 [History] L. Acidophilus/L.bulgaricus [Lactinex Chewable Tablet] 1 each PO BID #60 tab.chew 06/16/16 [Rx] Albuterol Sulfate [Ventolin Hfa] 1 - 2 puff IH Q4-6H PRN 10/14/17 [History] Pravastatin Sodium [Pravachol] 40 mg PO DAILY 10/14/17 [History] 3 Allergy/AdvReac Type Severity Reaction Status Date / Time Erythromycin Base Allergy Anaphylaxis Verified 09/21/15 16:21 ibuprofen Allergy Hives Verified 09/21/15 16:21 Tetanus Vaccines and Toxoid Allergy Anaphylaxis Verified 09/21/15 16:21 [Tetanus Vaccines & Toxoid] nsaids Allergy Hives Uncoded 09/21/15 16:21 All Systems Review: A 10-system review of systems was performed and is negative for pertinent findings except as documented above in the HPI. - Constitutional Constitutional: no fatigue, no fever(s), no stops breathing during sleep - Cardiovascular Cardiovascular: no chest pain at rest, no chest pain with exertion, no diaphoresis, no lightheadedness, no syncope - Respiratory Respiratory: cough, dyspnea - Neurological Neurological: no abnormal speech, no dizziness, no numbness, no tingling Physical Examination Vital Signs, Last 4 Hours Temp Pulse Resp BP Pulse Ox 10/14/17 15:46 15 96 10/14/17 15:05 98.0 F 86 15 102/63 96 General: Conversant Neck: Other (no JVD, no carotid bruit) Cardiac: Other (RRR, nml S1/S2, no S3/S4, no murmur) Lungs: Other (normal chest wall expansion, no diminished breath sounds, clear bilaterally) Neuro: Other (no evidence of facial droop or slurred speech) Skin: Other (no petechiae) Extremities: Other (normal capillary refill, no edema) Results 10/14/17 04:15 10/14/17 04:15 Lab Results 10/14/17 10/14/17 08:29 13:46 Troponin I 0.07 H* 0.04 H* Consult Discharge Plan - Plan Referrals: Parker Bourgeois, [Primary Care Provider] - 10/21/17 9:45 am <Chris Rodriguez - Last Filed: 10/15/17 14:08> Date of Encounter: 10/15/17 - Attending Attestation I examined this patient and my medical decision-making was reviewed with the Resident Physician. I agree with the documented findings, disposition and treatment plan as described except to the extent set forth below. 1. Elevated troponin, most likely due to demand ischemia, however with multiple risk factors and hx severe three vessel dx post CABG, will order nuclear perfusion imaging for AM. Risks and benefits discussed, agrees to proceed. Further recomendations pending results of stress imaging. 2. CAD - severe triple vessel CAD, post CABG x 3 3. Hypertension; controlled on current meds 4. CKD state 4, appreciate nephrology consult. Assessment and Plan Discussion w patient/family: The assessment and plan as outlined above was discussed with the patient and/or family members who expressed understanding and agreement. All questions were answered. Thank you for involving us in the care of your patient. Please call with any questions. History of Present Illness History of present illness: Mr. Waller is a 77 year old male All Systems Review: A 10-system review of systems was performed and is negative for pertinent findings except as documented above in the HPI. Physical Examination Vital Signs, Last 4 Hours Temp Pulse Resp BP Pulse Ox 10/15/17 11:43 98.7 F 83 16 151/71 95 Results 10/15/17 02:54 10/15/17 02:54 Lab Results 10/14/17 10/14/17 10/15/17 13:46 20:21 02:54 WBC 10.1 Hgb 10.3 L Hct 32.2 L Plt Count 200 INR APTT Sodium Potassium Chloride Carbon Dioxide BUN Creatinine Glucose Calcium Magnesium Total Bilirubin AST ALT Alkaline Phosphatase Troponin I 0.04 H* 0.03 B-Natriuretic Peptide 10/15/17 10/15/17 10/15/17 02:54 02:54 02:54 WBC Hgb Hct Plt Count INR 1.2 APTT 26.4 Sodium 137 Potassium 4.9 H Chloride 106 Carbon Dioxide 21 BUN 51 H Creatinine 3.16 H Glucose 139 H Calcium 9.2 Magnesium 1.7 Total Bilirubin 0.3 AST 21 ALT 18 Alkaline Phosphatase 58 Troponin I B-Natriuretic Peptide 177 H
[2017-10-14] MEDS: Aspirin Enteric Coated 81 MG Tablet PO SCH (17:37)
--- NOTE | 2017-10-14 20:39 | Electrocardiograph Report ---
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
[2017-10-14] MEDS ORDERED: Ipratropium/Albuterol Neb 3 ML IH PRN (20:54)
[2017-10-15] MEDS: MethylPREDNISolone 40 MG/ML VIAL IVP SCH ×2 (00:03→10:25)
[2017-10-15 04:06] LABS: Basophils % 0.1 %; Eosinophils % 0.1 %; Hematocrit 32.2 % (37.5-50.1); Hemoglobin 10.3 g/dL (12.9-16.9); Immature Granulocytes % 0.5 % (0-4); Lymphocytes # 0.7 K/mcL (0.6-4.6); Lymphocytes % 7.3 %; Mean Corpuscular Hemoglobin 28.9 pg (28.0-33.3); Mean Corpuscular Volume 90.2 fL (83.0-100.0); Mean Platelet Volume 10.3 fL (9.4-12.4); Monocytes # 0.1 K/mcL (0.0-1.3); Monocytes % 1.4 %; Neutrophils # 9.1 K/mcL (1.6-8.9); Platelet Count 200 K/mcL (140-400); Red Blood Count 3.57 M/mcL (4.19-5.50); Red Cell Distribution Width 14.1 % (11.5-14.5); Segmented Neutrophils % 90.6 %
[2017-10-15 04:08] LABS: INR 1.2
[2017-10-15 04:10] LABS: Activated Partial Thrombo Time 26.4 Seconds (26.0-36.0)
[2017-10-15 04:20] LABS: Albumin 3.1 g/dL (3.5-5.0); Albumin/Globulin Ratio 0.8 (1.1-2.2); Bilirubin,Total 0.3 mg/dL (0.2-1.2); Calcium 9.2 mg/dL (8.6-10.8); Chol/HDL Ratio 3.7 (0-4.9); Globulin 4.1 g/dL (2.4-3.5); Magnesium 1.7 mg/dL (1.6-2.6); Phosphorous 2.2 mg/dL (2.3-4.7); Potassium 4.9 mEq/L (3.5-4.5); Total Protein 7.2 g/dL (6.0-8.3)
[2017-10-15] MEDS ORDERED: Regadenoson 0.4 MG/5 ML SYRINGE IVP ONE (06:13)
[2017-10-15] MEDS: Levofloxacin 250 MG/50 ML 250 MG/50 ML BAG IVPB SCH (08:24)
[2017-10-15] MEDS: EPA PO SCH ×4 (08:32→20:07)
[2017-10-15] MEDS: DOCOSAHEXANOIC ACID PO SCH ×4 (08:32→20:07)
[2017-10-15] MEDS: ALISKIREN 300 MG PO SCH (08:32)
[2017-10-15] MEDS: CALCIUM CARBONATE PO SCH (08:32)
[2017-10-15] MEDS: VITAMIN D3 PO SCH (08:32)
[2017-10-15] MEDS: hydroCHLOROthiazide 25 MG TABLET PO SCH (10:26)
[2017-10-15] MEDS: Gabapentin 300 MG CAPSULE PO SCH ×4 (10:26→20:54)
[2017-10-15] MEDS: Isosorbide MONOnitrate (24 HR) 60 MG TAB.ER.24H PO SCH (10:26)
[2017-10-15] MEDS: Cholecalciferol (D-3) 1,000 UNIT TABLET PO SCH ×2 (10:26→20:54)
[2017-10-15] MEDS ORDERED: Acetaminophen 325 MG TABLET PO PRN (14:35)
--- NOTE | 2017-10-15 15:10 | Cardiology Progress Note ---
<Matt Bradley - Last Filed: 10/15/17 15:23> Date of Encounter: 10/15/17 Time of Encounter: 11:30 Assessment and Plan (1) Elevated troponin Current Visit: Yes Status: Acute Mild elevated troponin with peak at .07 likely secondary to recent hypoxia, now resolved -ECG shows sinus tachycardia with no lead V1-V3 early repolarization, no ST elevation/depression -Poor R wave progression, seen in old ECGs P: Nuclear medicine scan performed this morning, pharmacologic stress postponed to later date. Likely to perform outpatient. (2) Hypoxia Current Visit: Yes Status: Acute Hypoxia resolve on duoneb, 2L O2 nasal cannula, no use of home O2 -CXR negative for acute pulmonary process -Prophylactic/Presumptive antibiotics being given by primary team (3) Hypertension Current Visit: Yes Status: Acute Continue Amlodipine, Carvedilol, HCTZ, Imdur, [place] P: Recommend add hydralazine (although pt gets headache on hydralazine) if pressures remain elevated. Continue close monitoring. Qualifiers: Hypertension type: essential hypertension Qualified Code(s): I10 - Essential (primary) hypertension (4) CKD (chronic kidney disease) stage 4, GFR 15-29 ml/min Current Visit: Yes Status: Acute Per Nephrology consult, close monitor kidney function, Cr remains at baseline 3.1, control of blood pressure. (5) Hyperlipidemia Current Visit: Yes Status: Acute Continue Atorvastatin, no dose renal dosing adjustment required, consider increasing to high-intensity 40mg if patient can tolerate, can follow-up PCP. Known history extensive atherosclerosis requiring CABGx3; bilateral CEA Qualifiers: Hyperlipidemia type: unspecified Qualified Code(s): E78.5 - Hyperlipidemia , unspecified Discussion w patient/family: The assessment and plan as outlined above was discussed with the patient and/or family members who expressed understanding and agreement. All questions were answered. Thank you for involving us in the care of your patient. Please call with any questions. Subjective Principal diagnosis: Elevated troponin secondary to hypoxia Interval history: Mr. Waller came back from this morning's nuclear medicine structural evaluation , reports lab unable to perform pharm stress test portion--may perform in an outpatient setting. Reports no relapse of breathing difficulty. No chest pain, lightheadedness. Mild persisting cough. Objective Vital Signs, Last 4 Hours Temp Pulse Resp BP Pulse Ox 10/15/17 11:43 98.7 F 83 16 151/71 95 General: Conversant HEENT: Atraumatic Neck: Other (no bruit heard on carotid exam bilaterally) Cardiac: Other (regular rate and rhythm, no murmurs, gallops, ) Lungs: Other (normal chest wall expansion, no diminished breath sounds) Neuro: Other (intact dermatome sensation 4 distinct dermatomes UE and LE, history of stroke, no current focal deficits) Results 10/15/17 02:54 10/15/17 02:54 Lab Results 10/14/17 10/15/17 10/15/17 20:21 02:54 02:54 WBC 10.1 Hgb 10.3 L Hct 32.2 L Plt Count 200 INR 1.2 APTT 26.4 Sodium Potassium Chloride Carbon Dioxide BUN Creatinine Glucose Calcium Magnesium Total Bilirubin AST ALT Alkaline Phosphatase Troponin I 0.03 B-Natriuretic Peptide 10/15/17 10/15/17 02:54 02:54 WBC Hgb Hct Plt Count INR APTT Sodium 137 Potassium 4.9 H Chloride 106 Carbon Dioxide 21 BUN 51 H Creatinine 3.16 H Glucose 139 H Calcium 9.2 Magnesium 1.7 Total Bilirubin 0.3 AST 21 ALT 18 Alkaline Phosphatase 58 Troponin I B-Natriuretic Peptide 177 H Consult Discharge Plan - Plan Referrals: Parker Bourgeois, [Primary Care Provider] - 10/21/17 9:45 am <Chris Rodriguez - Last Filed: 10/15/17 17:53> Date of Encounter: 10/15/17 Assessment and Plan (1) Chest pain Current Visit: No Status: Acute I examined this patient and my medical decision-making was reviewed with the Resident Physician. I agree with the documented findings, disposition and treatment plan as described except to the extent set forth below. 1. Chest pain - has resolved, initial stress imaging today, need stress study tomorrow or Friday, 2. Elevated troponin, minimal, most consistent with demand ischemia, hypoxia, await completion of stress imaging to evaluate ischemic substrate. 3. Hypoxia - has resolved Qualifiers: Chest pain type: other chest pain Qualified Code(s): R07.89 - Other chest pain Discussion w patient/family: The assessment and plan as outlined above was discussed with the patient and/or family members who expressed understanding and agreement. All questions were answered. Thank you for involving us in the care of your patient. Please call with any questions. Objective Vital Signs, Last 4 Hours Temp Pulse Resp BP Pulse Ox 10/15/17 16:14 98.1 F 85 15 182/63 94 Results 10/15/17 02:54 10/15/17 02:54 Lab Results 10/14/17 10/15/17 10/15/17 20:21 02:54 02:54 WBC 10.1 Hgb 10.3 L Hct 32.2 L Plt Count 200 INR 1.2 APTT 26.4 Sodium Potassium Chloride Carbon Dioxide BUN Creatinine Glucose Calcium Magnesium Total Bilirubin AST ALT Alkaline Phosphatase Troponin I 0.03 B-Natriuretic Peptide 10/15/17 10/15/17 02:54 02:54 WBC Hgb Hct Plt Count INR APTT Sodium 137 Potassium 4.9 H Chloride 106 Carbon Dioxide 21 BUN 51 H Creatinine 3.16 H Glucose 139 H Calcium 9.2 Magnesium 1.7 Total Bilirubin 0.3 AST 21 ALT 18 Alkaline Phosphatase 58 Troponin I B-Natriuretic Peptide 177 H
--- NOTE | 2017-10-15 16:19 | Nephrology Progress Note ---
Date of Encounter: 10/15/17 Time of Encounter: 16:00 Subjective Principal diagnosis: Elevated troponin secondary to hypoxia Objective - Vital Signs Vital signs: Vital Signs Temp Pulse Resp BP Pulse Ox 10/15/17 16:14 98.1 F 85 15 182/63 94 10/15/17 11:43 98.7 F 83 16 151/71 95 10/15/17 06:55 98.1 F 91 16 199/84 94 10/15/17 02:54 98.3 F 90 16 182/78 95 10/14/17 23:08 98.5 F 96 16 187/77 95 10/14/17 20:29 16 96 10/14/17 18:51 98.1 F 90 18 175/75 95 Intake and Output 10/15/17 10/15/17 10/15/17 07:59 15:59 23:59 Other: Meal Lunch Percent of Meal Consumed 10% # Voids 1 Weight 89.3 kg Patient Weight 10/15/17 23:59 Weight 89.3 kg - Lab 10/15/17 02:54 10/15/17 02:54 Most recent lab results Calcium 9.2 mg/dL (8.6-10.8) 10/15/17 02:54 Phosphorus 2.2 mg/dL (2.3-4.7) L 10/15/17 02:54 Magnesium 1.7 mg/dL (1.6-2.6) 10/15/17 02:54 Consult Discharge Plan - Plan Referrals: Parker Bourgeois DO [Primary Care Provider] - 10/21/17 9:45 am
[2017-10-15] MEDS: Aspirin Enteric Coated 81 MG Tablet PO SCH (17:09)
[2017-10-15] MEDS: amLODIPine 5 MG TABLET PO SCH (17:09)
--- NOTE | 2017-10-15 18:27 | Internal Med Progress Note ---
Date of Encounter: 10/15/17 Time of Encounter: 13:00 - Assessment and plan (1) Elevated troponin Current Visit: Yes Status: Acute Assessment and plan: -Cardiology has been consulted and pharmacological stress test scheduled for . (2) COPD exacerbation Current Visit: Yes Status: Acute Assessment and plan: -Improving; change IV Solu-Medrol to oral prednisone and will continue Levaquin in addition to DuoNeb's. (3) Hypertension Current Visit: Yes Status: Acute Assessment and plan: -Continue home medications. Qualifiers: Hypertension type: essential hypertension Qualified Code(s): I10 - Essential (primary) hypertension (4) Hyperlipidemia Current Visit: Yes Status: Acute Assessment and plan: -Continue home medications. Qualifiers: Hyperlipidemia type: unspecified Qualified Code(s): E78.5 - Hyperlipidemia , unspecified (5) CKD (chronic kidney disease) stage 4, GFR 15-29 ml/min Current Visit: Yes Status: Acute Assessment and plan: -Stable; continue to monitor. (6) DVT prophylaxis Current Visit: Yes Status: Acute Assessment and plan: Subcutaneous heparin. - Subjective Interval history: No acute events overnight. - Constitutional Vitals: Temp Pulse Resp BP Pulse Ox 98.1 F 85 15 182/63 94 10/15/17 16:14 10/15/17 16:14 10/15/17 16:14 10/15/17 16:14 10/15/17 16:14 General appearance: Present: A&O X 3, pleasant, no acute distress, answers questions appropriately - Respiratory Respiratory exam: Present: CTAB. Absent: accessory muscle use, rales, rhonchi, wheezes - Cardiovascular Cardiovascular exam: Present: RRR, +S1, +S2. Absent: diastolic murmur, gallop, rubs, systolic murmur Internal Medicine: Result - Labs CBC & Chem 7: 10/15/17 02:54 10/15/17 02:54 Labs: Short CBC 10/15/17 Range/Units 02:54 WBC 10.1 (4.3-11.1) K/mcL Hgb 10.3 L (12.9-16.9) g/dL Hct 32.2 L (37.5-50.1) % Plt Count 200 (140-400) K/mcL Neutrophils # 9.1 H (1.6-8.9) K/mcL BMP 10/15/17 02:54 Sodium 137 Potassium 4.9 H Chloride 106 Carbon Dioxide 21 BUN 51 H Creatinine 3.16 H Glucose 139 H Calcium 9.2 Cardiac Enzymes 10/14/17 Range/Units 20:21 Troponin I 0.03 (0-0.03) ng/mL Liver Function 10/15/17 Range/Units 02:54 Total Bilirubin 0.3 (0.2-1.2) mg/dL AST 21 (5-34) Units/L ALT 18 (0-55) Units/L Alkaline Phosphatase 58 (38-126) Units/L Albumin 3.1 L (3.5-5.0) g/dL - ABG Interpretation ABG results: PT/INR, D-dimer PT 13.0 Seconds (9.4-12.1) H 10/15/17 02:54 Consult Discharge Plan - Plan Referrals: Parker Bourgeois DO [Primary Care Provider] - 10/21/17 9:45 am
[2017-10-16] MEDS: *HR* Heparin 5,000 UNIT/ML VIAL SQ SCH ×2 (05:54→18:46)
[2017-10-16] MEDS: predniSONE 20 MG TABLET PO SCH (08:03)
[2017-10-16] MEDS: Levofloxacin 250 MG/50 ML 250 MG/50 ML BAG IVPB SCH (08:03)
[2017-10-16] MEDS: Gabapentin 300 MG CAPSULE PO SCH ×4 (08:03→21:59)
[2017-10-16] MEDS: hydroCHLOROthiazide 25 MG TABLET PO SCH (08:03)
[2017-10-16] MEDS: Isosorbide MONOnitrate (24 HR) 60 MG TAB.ER.24H PO SCH (08:04)
[2017-10-16] MEDS: CALCIUM CARBONATE PO SCH (08:04)
[2017-10-16] MEDS: DOCOSAHEXANOIC ACID PO SCH (08:04)
[2017-10-16] MEDS: VITAMIN D3 PO SCH (08:04)
[2017-10-16] MEDS: EPA PO SCH (08:04)
[2017-10-16] MEDS: Cholecalciferol (D-3) 1,000 UNIT TABLET PO SCH ×2 (08:04→22:00)
[2017-10-16] MEDS: ALISKIREN 300 MG PO SCH (08:04)
--- NOTE | 2017-10-16 10:16 | Cardiology Progress Note ---
Date of Encounter: 10/16/17 Time of Encounter: 10:10 Assessment and Plan (1) Elevated troponin Current Visit: Yes Status: Acute Per Cardiology: Mild elevated troponin with peak at 0.07 likely secondary to recent hypoxia and HTN. Subsequent trops improved and then negative. CP Free. Patient completed resting images yesterday. Unfortunately, patient had long-acting nitrate today and cannot proceed with stress images. Upon review of records patient had long- acting nitrate yesterday as well, however after resting images (those pictures are ok). I had lengthy discussion with patient and he remains agreeable to stay and complete test tomorrow. Will attempt to optimize BP control as well. (2) Hypertension Current Visit: Yes Status: Acute Per Cardiology: Remains elevated. HR in 70's. Will increase BB. May need another agent. Qualifiers: Hypertension type: essential hypertension Qualified Code(s): I10 - Essential (primary) hypertension (3) Hypoxia Current Visit: Yes Status: Acute Per Cardiology: Hypoxia resolve on duoneb, 2L O2 nasal cannula, no use of home O2. CXR negative for acute pulmonary process. SOB improved. Discussion w patient/family: The assessment and plan as outlined above was discussed with the patient who expressed understanding and agreement. All questions were answered. Thank you for involving us in the care of your patient. Please call with any questions. Subjective Principal diagnosis: Elevated troponin secondary to hypoxia Interval history: Patient denies any chest pain, shortness of breath, palpitations. Objective Vital Signs, Last 4 Hours Temp Pulse Resp BP Pulse Ox 10/16/17 07:01 97.6 F 77 16 183/80 94 General: Conversant, No Apparent Distress HEENT: Atraumatic, Normocephaly, Mucus Membranes Moist Neck: No JVD, Normal carotid pulses Cardiac: Reg Rate and Rhythm, Normal S1 and S2, No Murmur Lungs: Normal Breath Sounds, No Wheeze, Rales, Rhonchi Neuro: Alert and responsive, No focal deficits noted Abdomen: Soft, Non-Tender Skin: No rashes noted on visualized skin Musculoskeletal: No Chest Wall Tenderness Extremities: No Clubbing, No Cyanosis, No Edema, Normal Pulses Results 10/15/17 02:54 10/15/17 02:54 Laboratory Tests 01/29/16 10/14/17 10/14/17 14:14 04:15 04:15 INR Creatinine 3.55 H 3.10 H Troponin I 0.01 10/14/17 10/14/17 10/14/17 08:29 13:46 20:21 INR Creatinine Troponin I 0.07 H* 0.04 H* 0.03 10/15/17 10/15/17 02:54 02:54 INR 1.2 Creatinine 3.16 H Troponin I ITS Impressions Chest X-Ray 10/14/17 04:02 IMPRESSION: No acute cardiopulmonary process identified. D/ / Rosales Marques MD / Rosales Marques MD Interpreting Provider: Rosales Marques MD Active Medications Acetaminophen (Tylenol) 650 mg PO Q6HR PRN PRN Reason: Fever Stop: 04/16/18 14:36 Last Admin: 10/15/17 14:41 Dose: 650 mg Hydrocodone Bitart/Acetaminophen ([place] 5-325 Mg) 1 tab PO Q6H PRN PRN Reason: Pain Stop: 04/15/18 08:00 Albuterol/Ipratropium (Duoneb) 3 ml IH [id number] PRN PRN Reason: Shortness Of Breath/Wheezing Stop: 04/15/18 08:01 Allopurinol (Zyloprim) 100 mg PO QAM [facility] Stop: 04/15/18 09:01 Last Admin: 10/16/17 08:03 Dose: 100 mg Amlodipine Besylate (Norvasc) 10 mg PO QPM [facility] PRN Reason: Protocol Stop: 04/15/18 18:01 Last Admin: 10/15/17 17:09 Dose: 10 mg Aspirin (Aspirin Ec) 81 mg PO QPM [facility] Stop: 04/15/18 18:01 Last Admin: 10/15/17 17:09 Dose: 81 mg Atorvastatin Calcium (Lipitor) 10 mg PO HS [facility] Stop: 04/15/18 21:01 Last Admin: 10/15/17 20:54 Dose: 10 mg Carvedilol (Coreg) 12.5 mg PO BID [facility] PRN Reason: Protocol Stop: 04/15/18 09:01 Last Admin: 10/16/17 08:03 Dose: 12.5 mg Clopidogrel Bisulfate (Plavix) 75 mg PO QPM [facility] Stop: 04/15/18 08:01 Last Admin: 10/15/17 17:09 Dose: 75 mg Ferrous Sulfate (Ferrous Sulfate) 325 mg PO DAILY [facility] Stop: 04/15/18 09:01 Last Admin: 10/16/17 08:04 Dose: 325 mg Gabapentin (Neurontin) 600 mg PO QID [facility] Stop: 04/15/18 09:01 Last Admin: 10/16/17 08:03 Dose: 600 mg Heparin Sodium (Porcine) (Heparin) 5,000 unit SQ Q12HCO [facility] Stop: 04/17/18 06:01 Last Admin: 10/16/17 05:54 Dose: 5,000 unit Hydrochlorothiazide (Hydrochlorothiazide) 50 mg PO QAM [facility] PRN Reason: Protocol Stop: 04/15/18 09:01 Last Admin: 10/16/17 08:03 Dose: 50 mg Levofloxacin/Dextrose (Levaquin Premix 250 Mg/50 Ml) 250 mg in 50 mls @ 50 mls/ hr IVPB DAILY [facility] PRN Reason: Protocol Stop: 04/15/18 09:01 Last Admin: 10/16/17 08:03 Dose: 50 mls/hr Isosorbide Mononitrate (Imdur) 60 mg PO DAILY [facility] Stop: 04/15/18 09:01 Last Admin: 10/16/17 08:04 Dose: 60 mg Naloxone HCl (Narcan) 0.4 mg IVP Q2MIN PRN PRN Reason: Opioid Reversal Stop: 04/15/18 07:50 Nitroglycerin (Nitroglycerin) 0.4 mg SL AD PRN PRN Reason: Chest Pain Stop: 04/15/18 08:00 Omeprazole (Prilosec) 20 mg PO QPM [facility] Stop: 04/15/18 18:01 Last Admin: 10/15/17 17:09 Dose: 20 mg Pharmacy Profile Note (Patient Taking Own Medication) 1 each PO QAM [facility] Stop: 04/15/18 09:01 Last Admin: 10/16/17 08:04 Dose: Not Given Pharmacy Profile Note (Patient Taking Own Medication) 1 each PO QAM [facility] Stop: 04/15/18 09:01 Last Admin: 10/16/17 08:04 Dose: Not Given Pharmacy Profile Note (Patient Taking Own Medication) 1 each PO QID [facility] Stop: 04/15/18 09:01 Last Admin: 10/16/17 08:04 Dose: Not Given Potassium Chloride (Potassium Chloride) 20 meq PO BID [facility] Stop: 04/15/18 09:01 Last Admin: 10/16/17 08:03 Dose: 20 meq Prednisone (Prednisone) 40 mg PO DAILY [facility] Stop: 04/17/18 09:01 Last Admin: 10/16/17 08:03 Dose: 40 mg Vitamin D (Vitamin D) 2,000 unit PO BID [facility] Stop: 04/15/18 09:01 Last Admin: 10/16/17 08:04 Dose: 2,000 unit - Imaging and Cardiology Stress Test: pending Consult Discharge Plan - Plan Referrals: Parker Bourgeois DO [Primary Care Provider] - 10/21/17 9:45 am
[2017-10-16] MEDS: hydrALAZINE 10 MG TABLET PO SCH ×2 (12:27→21:59)
--- NOTE | 2017-10-16 15:39 | Nephrology Progress Note ---
Date of Encounter: 10/16/17 Subjective Principal diagnosis: Elevated troponin secondary to hypoxia Objective - Vital Signs Vital signs: Vital Signs Temp Pulse Resp BP Pulse Ox 10/16/17 14:32 97.9 F 71 16 154/66 94 10/16/17 10:40 97.6 F 69 16 173/82 95 10/16/17 07:01 97.6 F 77 16 183/80 94 10/16/17 03:12 97.9 F 73 16 168/67 95 10/15/17 22:43 98.1 F 85 18 161/67 93 10/15/17 18:53 97.8 F 83 18 165/73 94 10/15/17 16:14 98.1 F 85 15 182/63 94 Intake and Output 10/15/17 10/16/17 10/16/17 23:59 07:59 15:59 Intake Total 50 / 50 Balance 50 / 50 Intake: IV Fluids 50 / 50 Levaquin Premix 250 MG/50 ML 50 / 50 250 mg In 50 ml @ 50 mls/hr IVPB DAILY [facility] Rx#:[id number] Other: Meal NPO for breakfast. # Voids 1 1 # Bowel Movements 1 Weight 90.1 kg Patient Weight 10/16/17 23:59 Weight 90.1 kg - Lab 10/15/17 02:54 10/15/17 02:54 Most recent lab results Calcium 9.2 mg/dL (8.6-10.8) 10/15/17 02:54 Phosphorus 2.2 mg/dL (2.3-4.7) L 10/15/17 02:54 Magnesium 1.7 mg/dL (1.6-2.6) 10/15/17 02:54 Consult Discharge Plan - Plan Referrals: Parker Bourgeois DO [Primary Care Provider] - 10/21/17 9:45 am
[2017-10-16] MEDS: Aspirin Enteric Coated 81 MG Tablet PO SCH (18:46)
[2017-10-16] MEDS: amLODIPine 5 MG TABLET PO SCH (18:46)
--- NOTE | 2017-10-16 19:56 | Internal Med Progress Note ---
Date of Encounter: 10/16/17 Time of Encounter: 13:00 - Assessment and plan (1) Elevated troponin Current Visit: Yes Status: Acute Assessment and plan: -Cardiology has been consulted and pharmacological stress test scheduled for . (2) COPD exacerbation Current Visit: Yes Status: Acute Assessment and plan: -Improving; continue prednisone and Levaquin in addition to DuoNeb's. (3) Hypertension Current Visit: Yes Status: Acute Assessment and plan: -Blood pressures continues to be elevated so Coreg was increased per cardiology this afternoon. -Continue to monitor Qualifiers: Hypertension type: essential hypertension Qualified Code(s): I10 - Essential (primary) hypertension (4) Hyperlipidemia Current Visit: Yes Status: Acute Assessment and plan: -Continue home medications. Qualifiers: Hyperlipidemia type: unspecified Qualified Code(s): E78.5 - Hyperlipidemia , unspecified (5) CKD (chronic kidney disease) stage 4, GFR 15-29 ml/min Current Visit: Yes Status: Acute Assessment and plan: -Stable; continue to monitor. (6) DVT prophylaxis Current Visit: Yes Status: Acute Assessment and plan: Subcutaneous heparin. - Subjective Interval history: Patient's blood pressure elevated overnight and this morning. - Constitutional Vitals: Temp Pulse Resp BP Pulse Ox 97.9 F 71 16 154/66 94 10/16/17 14:32 10/16/17 14:32 10/16/17 14:32 10/16/17 14:32 10/16/17 14:32 General appearance: Present: A&O X 3, pleasant, no acute distress, answers questions appropriately - Cardiovascular Cardiovascular exam: Present: RRR, +S1, +S2. Absent: diastolic murmur, gallop, rubs, systolic murmur Internal Medicine: Result - Labs CBC & Chem 7: 10/15/17 02:54 10/15/17 02:54 - ABG Interpretation ABG results: PT/INR, D-dimer PT 13.0 Seconds (9.4-12.1) H 10/15/17 02:54 Consult Discharge Plan - Plan Referrals: Parker Bourgeois DO [Primary Care Provider] - 10/21/17 9:45 am
[2017-10-16] MEDS: MethylPREDNISolone 40 MG/ML VIAL IVP SCH (22:38)
[2017-10-17] MEDS: hydrALAZINE 10 MG TABLET PO SCH ×3 (05:12→14:36)
[2017-10-17] MEDS: *HR* Heparin 5,000 UNIT/ML VIAL SQ SCH (05:12)
[2017-10-17] MEDS ORDERED: Regadenoson 0.4 MG/5 ML SYRINGE IVP ONE (06:23)
--- NOTE | 2017-10-17 06:27 | Cardiology Progress Note ---
Date of Encounter: 10/17/17 Time of Encounter: 06:30 Assessment and Plan (1) Elevated troponin Current Visit: Yes Status: Acute Per Cardiology: Mild elevated troponin with peak at 0.07 likely secondary to recent hypoxia and HTN. No cardiac Rehab C/S warranted. Subsequent trops improved and then negative. CP Free. Stress test results pending today. Will resume Imdur after. (2) Hypertension Current Visit: Yes Status: Acute Per Cardiology: Remains elevated 170's - 180's after increase of BB and addition of Hydralazine , will titrate. Nephrology following, appreciate any further recs. HR in 60's-70 's. Qualifiers: Hypertension type: essential hypertension Qualified Code(s): I10 - Essential (primary) hypertension (3) Hypoxia Current Visit: Yes Status: Acute Per Cardiology: Hypoxia resolved on duoneb, 2L O2 nasal cannula, no use of home O2. CXR negative for acute pulmonary process. SOB improved. Discussion w patient/family: The assessment and plan as outlined above was discussed with the patient and family who expressed understanding and agreement. All questions were answered. Thank you for involving us in the care of your patient. Please call with any questions. Subjective Principal diagnosis: Elevated troponin secondary to hypoxia Interval history: Patient reports no CP, SOB improved, no palps. Objective Vital Signs, Last 4 Hours Temp Pulse Resp BP Pulse Ox 10/17/17 04:08 98.7 F 71 16 174/78 96 General: Conversant, No Apparent Distress HEENT: Atraumatic, Normocephaly, Mucus Membranes Moist Neck: No JVD, Normal carotid pulses Cardiac: Reg Rate and Rhythm, Normal S1 and S2, No Murmur Lungs: Normal Breath Sounds, Other (few scattered rhonchi) Neuro: Alert and responsive, No focal deficits noted Abdomen: Soft, Non-Tender Skin: No rashes noted on visualized skin Musculoskeletal: No Chest Wall Tenderness Extremities: No Clubbing, No Cyanosis, No Edema, Normal Pulses Results 10/15/17 02:54 10/15/17 02:54 Active Medications Acetaminophen (Tylenol) 650 mg PO Q6HR PRN PRN Reason: Fever Stop: 04/16/18 14:36 Last Admin: 10/15/17 14:41 Dose: 650 mg Hydrocodone Bitart/Acetaminophen ([place] 5-325 Mg) 1 tab PO Q6H PRN PRN Reason: Pain Stop: 04/15/18 08:00 Albuterol/Ipratropium (Duoneb) 3 ml IH [id number] PRN PRN Reason: Shortness Of Breath/Wheezing Stop: 04/15/18 08:01 Allopurinol (Zyloprim) 100 mg PO QAM [facility] Stop: 04/15/18 09:01 Last Admin: 10/16/17 08:03 Dose: 100 mg Amlodipine Besylate (Norvasc) 10 mg PO QPM [facility] PRN Reason: Protocol Stop: 04/15/18 18:01 Last Admin: 10/16/17 18:46 Dose: 10 mg Aspirin (Aspirin Ec) 81 mg PO QPM [facility] Stop: 04/15/18 18:01 Last Admin: 10/16/17 18:46 Dose: 81 mg Atorvastatin Calcium (Lipitor) 10 mg PO HS [facility] Stop: 04/15/18 21:01 Last Admin: 10/16/17 21:59 Dose: 10 mg Carvedilol (Coreg) 25 mg PO BIDWM [facility] PRN Reason: Protocol Stop: 04/17/18 17:01 Last Admin: 10/16/17 18:46 Dose: 25 mg Clopidogrel Bisulfate (Plavix) 75 mg PO QPM [facility] Stop: 04/15/18 08:01 Last Admin: 10/16/17 18:46 Dose: 75 mg Ferrous Sulfate (Ferrous Sulfate) 325 mg PO DAILY [facility] Stop: 04/15/18 09:01 Last Admin: 10/16/17 08:04 Dose: 325 mg Gabapentin (Neurontin) 600 mg PO QID [facility] Stop: 04/15/18 09:01 Last Admin: 10/16/17 21:59 Dose: 600 mg Heparin Sodium (Porcine) (Heparin) 5,000 unit SQ Q12HCO [facility] Stop: 04/17/18 06:01 Last Admin: 10/17/17 05:12 Dose: 5,000 unit Hydralazine HCl (Hydralazine) 25 mg PO Q8H [facility] Stop: 04/18/18 06:28 Last Admin: 10/17/17 06:47 Dose: 25 mg Hydrochlorothiazide (Hydrochlorothiazide) 50 mg PO QAM [facility] PRN Reason: Protocol Stop: 04/15/18 09:01 Last Admin: 11/23/17 08:03 Dose: 50 mg Levofloxacin/Dextrose (Levaquin Premix 250 Mg/50 Ml) 250 mg in 50 mls @ 50 mls/ hr IVPB DAILY [facility] PRN Reason: Protocol Stop: 04/15/18 09:01 Last Admin: 10/16/17 08:03 Dose: 50 mls/hr Naloxone HCl (Narcan) 0.4 mg IVP Q2MIN PRN PRN Reason: Opioid Reversal Stop: 04/15/18 07:50 Nitroglycerin (Nitroglycerin) 0.4 mg SL AD PRN PRN Reason: Chest Pain Stop: 04/15/18 08:00 Omeprazole (Prilosec) 20 mg PO QPM [facility] Stop: 04/15/18 18:01 Last Admin: 10/16/17 18:46 Dose: 20 mg Potassium Chloride (Potassium Chloride) 20 meq PO BID [facility] Stop: 04/15/18 09:01 Last Admin: 10/16/17 22:00 Dose: 20 meq Prednisone (Prednisone) 40 mg PO DAILY [facility] Stop: 04/17/18 09:01 Last Admin: 10/16/17 08:03 Dose: 40 mg Vitamin D (Vitamin D) 2,000 unit PO BID [facility] Stop: 04/15/18 09:01 Last Admin: 10/16/17 22:00 Dose: 2,000 unit - Imaging and Cardiology Stress Test: pending Consult Discharge Plan - Plan Referrals: Parker Bourgeois DO [Primary Care Provider] - 10/21/17 9:45 am
[2017-10-17] MEDS: Gabapentin 300 MG CAPSULE PO SCH ×2 (11:43→11:52)
[2017-10-17] MEDS ORDERED: Isosorbide MONOnitrate (24 HR) 60 MG TAB.ER.24H PO SCH (11:45)
[2017-10-17] MEDS: Cholecalciferol (D-3) 1,000 UNIT TABLET PO SCH (11:52)
[2017-10-17] MEDS: predniSONE 20 MG TABLET PO SCH (11:52)
[2017-10-17] MEDS: Levofloxacin 250 MG/50 ML 250 MG/50 ML BAG IVPB SCH (11:52)
[2017-10-17] MEDS: hydroCHLOROthiazide 25 MG TABLET PO SCH (11:52)
[2017-10-17 13:07] VITALS: BP 167/76
--- NOTE | 2017-10-17 15:06 | Discharge Summary ---
Date of Encounter: 10/17/17 Time of Encounter: 11:00 - Discharge Diagnosis (1) Elevated troponin Priority: Secondary Status: Acute (2) COPD exacerbation Priority: Primary Status: Acute (3) Hypertension Priority: Secondary Status: Acute Qualifiers: Hypertension type: essential hypertension Qualified Code(s): I10 - Essential (primary) hypertension (4) Hyperlipidemia Priority: Secondary Status: Acute Qualifiers: Hyperlipidemia type: unspecified Qualified Code(s): E78.5 - Hyperlipidemia , unspecified (5) CKD (chronic kidney disease) stage 4, GFR 15-29 ml/min Priority: Secondary Status: Acute - Discharge Medications Prescriptions: Carvedilol [Coreg] 25 mg PO BIDWM #60 tablet levoFLOXacin [Levaquin] 500 mg PO DAILY #5 tablet Home Medications: Acetaminophen [Tylenol] 325 mg PO Q6HR PRN 09/21/15 [History] Aliskiren [Tekturna] 300 mg PO QAM 09/21/15 [History] Allopurinol [Zyloprim] 100 mg PO QAM 09/21/15 [History] Aspirin Enteric Coated [Aspirin EC] 81 mg PO QPM 09/21/15 [History] Calcium Carbonate/Vitamin D3 [Calcium 600 + D Tablet] 1 each PO QAM 09/21/15 [ History] Cholecalciferol (Vitamin D3) [Vitamin D] 2,000 unit PO BID 09/21/15 [History] Clopidogrel [Plavix] 75 mg PO QPM 09/21/15 [History] Docosahexanoic Acid/Epa [Fish Oil Concentrate Softgel] 1,000 mg PO QID 09/21/15 [History] Gabapentin [Neurontin] 600 mg PO QID 09/21/15 [History] Hydrocodone/Acetaminophen [[place] 5-325 Tablet] 1 tab PO Q6H PRN 09/21/15 [ History] Nitroglycerin [Nitrostat] 0.4 mg SL AD PRN 09/21/15 [History] Pantoprazole Sodium [Protonix] 40 mg PO QPM 09/21/15 [History] Potassium Chloride 20 meq PO BID 09/21/15 [History] amLODIPine [Norvasc] 10 mg PO QPM 09/21/15 [History] hydroCHLOROthiazide [Hydrochlorothiazide] 50 mg PO QAM 09/21/15 [History] Isosorbide MONOnitrate (24 HR) [Imdur] 60 mg PO DAILY #30 tab.er.24h 09/22/15 [ Rx] Ferrous Sulfate [Iron] 325 mg PO DAILY 03/21/16 [History] L. Acidophilus/L.bulgaricus [Lactinex Chewable Tablet] 1 each PO BID #60 tab.chew 06/16/16 [Rx] Albuterol Sulfate [Ventolin Hfa] 1 - 2 puff IH Q4-6H PRN 10/14/17 [History] Pravastatin Sodium [Pravachol] 40 mg PO DAILY 10/14/17 [History] Carvedilol [Coreg] 25 mg PO BIDWM #60 tablet 10/17/17 [Rx] levoFLOXacin [Levaquin] 500 mg PO DAILY #5 tablet 10/17/17 [Rx] Allergies/Adverse Reactions: 3 Allergy/AdvReac Type Severity Reaction Status Date / Time Erythromycin Base Allergy Anaphylaxis Verified 09/21/15 16:21 ibuprofen Allergy Hives Verified 09/21/15 16:21 Tetanus Vaccines and Toxoid Allergy Anaphylaxis Verified 09/21/15 16:21 [Tetanus Vaccines & Toxoid] nsaids Allergy Hives Uncoded 09/21/15 16:21 Procedures/tests Complete & Pending: Procedures Performed prior 72 hours Category Date Time Status NM eric perf SPECT multi [NM] Routine Exams 10/14/17 18:02 Taken SP pharm nuclear stress Routine Y 10/17/17 07:00 Completed Date of admission: 10/14/17 07:49 Primary care physician: Parker Bourgeois DO Consults: 10/14/17 08:25 Consult to Nephrology [CONS] Routine Consulting Provider: Kidney Marissa/ALYSHA/KYLIE/SOLITARIO Reason for Consult: CKD IV/on levofloxacin/close monitoring of renal function Call Completed: Yes 10/15/17 08:18 Consult to Cardiology [CONS] Routine Comment: Consulting Provider: Cardiology Marissa Reason for Consult: elevated troponin Call Completed: Yes - Patient Status Disposition: Home, Self-Care Condition: Fair - Discharge Instructions Follow Up With: Parker Bourgeois DO [Primary Care Provider] - 10/21/17 9:45 am Hospital course: Patient is a 77-year-old male with past medical history significant for hypertension, coronary artery disease, hyperlipidemia, CKD 4 and prior CABG who presented to the ER on 10/14/17 with shortness of breath and cough. Patient reported that his breathing had become progressively difficult along with worsening cough and occasional wheezing. Patient tried some home remedies but that did not help. So in the night patient's decided to drive him to the hospital emergency room for further evaluation. In the ER, chest x-ray was negative for any infiltrates but patient was found to be hypoxic with O2 sats of 88%. He was also found to have mild elevated cardiac biomarkers. Patient was admitted to medical floor for management of COPD exacerbation and evaluation of elevated cardiac biomarkers. During patients hospital stay his shortness of breath resolved with treatment of COPD exacerbation with IV antibiotics and IV steroids in addition to aerosolized medications. Cardiology was consulted with recommendations for a nuclear stress test which was negative for ischemia. Patient will follow up with primary care provider for management of hypertension and will continue oral antibiotics for 5 days for treatment of COPD exacerbation. - Time Spent with Patient Total time spent providing and/or coordinating discharge services: Less than 30 minutes - Constitutional Vitals: Temp Pulse Resp BP Pulse Ox 98.0 F 61 17 167/76 96 10/17/17 13:03 10/17/17 13:03 10/17/17 13:03 10/17/17 13:03 10/17/17 13:03 General appearance: Present: A&O X 3, pleasant, no acute distress, answers questions appropriately - Cardiovascular Cardiovascular exam: Present: RRR, +S1, +S2. Absent: diastolic murmur, gallop, rubs, systolic murmur
== END 2017-10-17 16:33 | disposition home or self-care (01) | DRG 191 ==
LOC: EMEROO 03:53 → 3BNU 03:53 → SUATTDRO 07:49
PROVIDERS: ADMIT Internal Medicine; ATTEND Hospitalist

== ENCOUNTER 2018-12-01 04:00 | Observation (INO) ==
[2018-12-01] MEDS ORDERED: Aspirin 81 MG TAB.CHEW PO ONE ×2 (04:07→05:35)
--- NOTE | 2018-12-01 04:15 | Emergency Department Note ---
Disposition Clinical Impression: Chest pain Qualifiers: Chest pain type: unspecified Qualified Code(s): R07.9 - Chest pain, unspecified Hypertension Qualifiers: Hypertension type: unspecified Qualified Code(s): I10 - Essential (primary) hypertension Chronic kidney disease Qualifiers: Chronic kidney disease stage: unspecified stage Qualified Code(s): N18.9 - Chronic kidney disease, unspecified Disposition: Admitted As Inpatient Condition: Fair Referrals: NONE,PCP [Primary Care Provider] - Time of Disposition: 06:49 General Adult HPI - General Stated complaint: Shortness of Breath Time Seen by Provider: 12/01/18 04:07 Source: patient, EMS Mode of arrival: ambulatory Limitations: no limitations Nursing Notes Reviewed: Yes Vital Signs Reviewed: Yes - History of Present Illness HPI Narrative: 78-year-old male with a history of CAD, COPD hypertension presents for evaluation of chest pain. Patient also notes shortness of breath. Patient states that symptoms began approximately 2 hours prior to ED arrival. Stated he was awake. Describing anterior chest pain without specific radiation. No diaphoresis. Patient states he felt nauseous no vomiting. Patient states he do es have a prior history of bypass. Patient notes some shortness of breath related the pain. Patient also notes a nonproductive cough. No fevers. No abdominal pain. Patient states that he was recently seen at the [facility] and was told that he had diverticulitis. No history of DVT or PE. Pain Scale: 9 - Related Data Home Medications Medication Instructions Recorded Confirmed Acetaminophen [Tylenol] 325 mg PO Q6HR PRN 09/21/15 10/14/17 Aliskiren [Tekturna] 300 mg PO QAM 09/21/15 10/14/17 Allopurinol [Zyloprim] 100 mg PO QAM 09/21/15 10/14/17 Aspirin Enteric Coated [Aspirin EC] 81 mg PO QPM 09/21/15 10/14/17 Calcium Carbonate/Vitamin D3 1 each PO QAM 09/21/15 10/14/17 [Calcium 600 + D Tablet] Cholecalciferol (Vitamin D3) 2,000 unit PO BID 09/21/15 10/14/17 [Vitamin D] Clopidogrel [Plavix] 75 mg PO QPM 09/21/15 10/14/17 Docosahexanoic Acid/Epa [Fish Oil 1,000 mg PO QID 09/21/15 10/14/17 Concentrate Softgel] Gabapentin [Neurontin] 600 mg PO QID 09/21/15 10/14/17 Hydrocodone/Acetaminophen [[place] 1 tab PO Q6H PRN 09/21/15 10/14/17 5-325 Tablet] Nitroglycerin [Nitrostat] 0.4 mg SL AD PRN 09/21/15 10/14/17 Pantoprazole Sodium [Protonix] 40 mg PO QPM 09/21/15 10/14/17 Potassium Chloride 20 meq PO BID 09/21/15 10/14/17 amLODIPine [Norvasc] 10 mg PO QPM 09/21/15 10/14/17 hydroCHLOROthiazide 50 mg PO QAM 09/21/15 10/14/17 [Hydrochlorothiazide] Ferrous Sulfate [Iron] 325 mg PO DAILY 03/21/16 10/14/17 Albuterol Sulfate [Ventolin Hfa] 1 - 2 puff IH Q4-6H PRN 10/14/17 10/14/17 Pravastatin Sodium [Pravachol] 40 mg PO DAILY 10/14/17 10/14/17 Previous Rx's Medication Instructions Recorded Isosorbide MONOnitrate (24 HR) 60 mg PO DAILY #30 tab.er.24h 09/22/15 [Imdur] L. Acidophilus/L.bulgaricus 1 each PO BID #60 tab.chew 06/16/16 [Lactinex Chewable Tablet] Carvedilol [Coreg] 25 mg PO BIDWM #60 tablet 10/17/17 levoFLOXacin [Levaquin] 500 mg PO DAILY #5 tablet 10/17/17 Polyethylene Glycol 3350 [MiraLAX] 17 gm PO DAILY #7 powd.pack 10/24/17 Allergies Allergy/AdvReac Type Severity Reaction Status Date / Time Erythromycin Base Allergy Anaphylaxis Verified 11/04/17 02:32 ibuprofen Allergy Hives Verified 11/04/17 02:32 Tetanus Vaccines and Toxoid Allergy Anaphylaxis Verified 11/04/17 02:32 [Tetanus Vaccines & Toxoid] Hydralazine AdvReac Headache Verified 11/04/17 02:32 nsaids Allergy Hives Uncoded 11/04/17 02:32 All systems ED: reviewed and negative except as stated. Constitutional: Denies: fever Cardiovascular: Reports: chest pain Respiratory: Reports: cough, dyspnea. Denies: sputum production Gastrointestinal: Reports: nausea. Denies: abdominal pain, vomiting Past Medical History - Past Medical History Source: patient Medical history: Reports: coronary artery disease, CVA, hyperlipidemia, hypertension, myocardial infarction, renal disease, TIA Surgical history: Reports: carotid endarterectomy, cataract, coronary bypass (CABG) Psychiatric history: Reports: no psych history - Social History Smoking Status: Former smoker Smokeless Tobacco Status: No Alcohol use: Reports: none Drug use: Reports: none Physical Exam - General Limitations: no limitations General appearance: alert, in no apparent distress - Head Head exam: atraumatic, normocephalic, normal inspection - Eye Eye exam: Present: normal appearance, PERRL, EOMI - ENT ENT exam: normal exam, normal oropharynx, mucous membranes moist - Neck Neck exam: Present: normal inspection, full ROM, trachea midline - Chest Chest inspection: Present: normal inspection, symmetric chest wall rise - Respiratory Respiratory exam: Present: normal lung sounds bilaterally. Absent: respiratory distress - Cardiovascular Cardiovascular exam: Present: regular rate, normal rhythm - Abdominal Exam Abdominal exam: Present: soft, Non-Tender. Absent: guarding, rebound - Extremities Exam Extremities exam: Present: normal inspection. Absent: pedal edema - Back Exam Back exam: Present: normal inspection - Neurological Exam Neurological exam: Present: alert, oriented X3, CN II-XII intact - Skin Skin exam: Present: warm, dry, intact, normal color Course Course Narrative: Patient seen and examined. Patient will get cardiology pulmonary screening evaluation with EKG, chest x-ray troponin. Patient was noted to be hypertensive. - Reevaluation(s) Reevaluation #1: Patient's chest pain and blood pressure per with nitroglycerin. Time: 05:27 Reevaluation #2: Patient seen resting currently. Patient's blood pressure improved. Patient w ill get into Nitropaste. Time: 05:52 Vital Signs Temperature 98.4 F 12/01/18 04:04 Pulse Rate 89 12/01/18 04:04 Respiratory Rate 20 12/01/18 04:04 Blood Pressure 204/101 12/01/18 04:04 O2 Sat by Pulse Oximetry 100 12/01/18 04:04 Temperature 98.4 F 12/01/18 04:04 Pulse Rate 88 12/01/18 05:33 Respiratory Rate 15 12/01/18 05:33 Blood Pressure 143/82 12/01/18 05:33 O2 Sat by Pulse Oximetry 97 12/01/18 05:33 Oxygen Delivery Oxygen Delivery Room Air Medical Decision Making - MDM Narrative Medical decision making narrative: Patient presented for concerns of chest pain. Patient has of cardiac history with bypass. Patient was hypertensive complaining of anterior retrosternal chest pain no radiation. Concerning for unstable angina. Patient's pain improved as well as blood pressure were with 3 nitroglycerin. Ultimately patient still had some residual pain was placed on nitroglycerin paste. Patient received aspirin. Patient's symptoms are not consistent with aortic dissection or PE. Patient would likely need continued cardiopulmonary evaluation with serial troponins and blood pressure monitoring. Patient will come for said plan of care and inpatient admission. Patient's labs show evidence of chronic kidney disease. - Medical Records Medical records reviewed: Yes I reviewed the patient's medical records. 2017 Impression: Pharmacologic stress ECG is negative for ischemia at level of heart rate achieved. Gated EF = 65%. Medium sized, moderate intensity, fixed basal to mid inferior/inferolateral defect suggestive of a prior infarct. Perfusion imaging was negative for ischemia. - Lab Data Lab results reviewed: Yes I reviewed the patient's lab results. Result diagrams: 12/01/18 04:37 12/01/18 04:37 Lab Results 12/01/18 12/01/18 12/01/18 Range/Units 04:37 04:37 04:37 WBC 5.7 (4.3-11.1) K/mcL RBC 4.26 (4.19-5.50) M/mcL Hgb 12.6 L (12.9-16.9) g/dL Hct 37.6 (37.5-50.1) % MCV 88.3 (83.0-100.0) fL MCH 29.6 (28.0-33.3) pg MCHC 33.5 (31.6-35.5) g/dL RDW 14.3 (11.5-14.5) % Plt Count 204 (140-400) K/mcL MPV 9.6 (9.4-12.4) fL Immature Gran % 0.0 (0-4) % Seg Neutrophils % 55.9 % Lymphocytes % 29.1 % Monocytes % 9.9 % Eosinophils % 4.4 % Basophils % 0.7 % Neutrophils # 3.2 (1.6-8.9) K/mcL Lymphocytes # 1.7 (0.6-4.6) K/mcL Monocytes # 0.6 (0.0-1.3) K/mcL Eosinophils # 0.3 (0.0-0.6) K/mcL Basophils # 0.0 (0.0-0.2) K/mcL PT 13.2 H (9.4-12.1) Seconds INR 1.2 Sodium (136-145) mEq/L Potassium (3.5-5.1) mEq/L Chloride (98-107) mEq/L Carbon Dioxide (23-29) mEq/L BUN (8-23) mg/dL Creatinine (0.70-1.30) mg/dL Est GFR ( Amer) (> 60) Est GFR (Non-Af Amer) (> 60) BUN/Creatinine Ratio (6-26) Glucose (70-105) mg/dL Calculated Osmolality (280-300) Calcium (8.6-10.3) mg/dL Troponin I (< 0.04) ng/mL B-Natriuretic Peptide 154 H (Less than 100) pg/mL 12/01/18 Range/Units 04:37 WBC (4.3-11.1) K/mcL RBC (4.19-5.50) M/mcL Hgb (12.9-16.9) g/dL Hct (37.5-50.1) % MCV (83.0-100.0) fL MCH (28.0-33.3) pg MCHC (31.6-35.5) g/dL RDW (11.5-14.5) % Plt Count (140-400) K/mcL MPV (9.4-12.4) fL Immature Gran % (0-4) % Seg Neutrophils % % Lymphocytes % % Monocytes % % Eosinophils % % Basophils % % Neutrophils # (1.6-8.9) K/mcL Lymphocytes # (0.6-4.6) K/mcL Monocytes # (0.0-1.3) K/mcL Eosinophils # (0.0-0.6) K/mcL Basophils # (0.0-0.2) K/mcL PT (9.4-12.1) Seconds INR Sodium 140 (136-145) mEq/L Potassium 4.2 (3.5-5.1) mEq/L Chloride 106 (98-107) mEq/L Carbon Dioxide 21 L (23-29) mEq/L BUN 22 (8-23) mg/dL Creatinine 2.70 H (0.70-1.30) mg/dL Est GFR ( Amer) 28 L (> 60) Est GFR (Non-Af Amer) 23 L (> 60) BUN/Creatinine Ratio 8 (6-26) Glucose 116 H (70-105) mg/dL Calculated Osmolality 294 (280-300) Calcium 10.0 (8.6-10.3) mg/dL Troponin I < 0.03 (< 0.04) ng/mL B-Natriuretic Peptide (Less than 100) pg/mL - Radiology Data Radiology results reviewed: Yes I reviewed the patient's radiology results. Chest X-Ray 12/01/18 04:07 IMPRESSION: No acute findings. D/ / Silver Clinton / Silver Clinton Interpreting Provider: Silver Clinton - EKG Data EKG #1 EKG attestation: Yes I reviewed and interpreted this EKG. EKG shows normal: sinus rhythm Rate: normal Rhythm: NSR [place]/QRS: normal P waves: LAE Heart block present: 1st Degree When compared to previous EKG there are: no significant changes Interpretation: no acute changes, nonspecific ST-T wave changes S.B.A.RFan - Lynne.[email or web address] Situation: Demographics Background: Presenting Complaint Assessment: Vital Signs, Course and respsone to treatment, Patient/Family Expectation Recommendation: Barrier(s) to disposition, Recommendation based on pending studies, treatments, or consults S.B.A.RFan Report Given to: Dr. Brenner SFanB.ABrian Repor Time: 06:31 Attestation Statement - Attestation Attestation: Resident Attestation: I examined this patient and my medical decision making was reviewed with the Resident Physician. I agree with the documented findings, disposition and treatment plan as described except to the extent set forth below. We independently had [id number] contact with the patient. Patient presented for evaluation of chest pain that started last night. Patient describes as a heaviness in the center of his chest that did get better with nitroglycerin given within the emergency department. Patient does have a history of prior cardiac bypass surgery. No acute distress, regular rhythm, clear to auscultation bilaterally,Peripheral edema Patient's workup unremarkable within the emergency department. Given patient's history as well as improving symptoms with nitroglycerin he will be admitted for further cardiac evaluation.
[2018-12-01] MEDS ORDERED: Ondansetron 4 MG/2 ML VIAL IVP ONE (04:23)
[2018-12-01] MEDS ORDERED: Ondansetron 4 MG/2 ML VIAL ONE (04:25)
[2018-12-01] MEDS: Nitroglycerin 0.4 MG TAB.SUBL SL ONE ×3 (04:29→04:50)
[2018-12-01 04:46] LABS: Basophils % 0.7 %; Eosinophils # 0.3 K/mcL (0.0-0.6); Eosinophils % 4.4 %; Hematocrit 37.6 % (37.5-50.1); Hemoglobin 12.6 g/dL (12.9-16.9); Lymphocytes # 1.7 K/mcL (0.6-4.6); Lymphocytes % 29.1 %; Mean Corpuscular HGB Conc 33.5 g/dL (31.6-35.5); Mean Corpuscular Hemoglobin 29.6 pg (28.0-33.3); Mean Corpuscular Volume 88.3 fL (83.0-100.0); Mean Platelet Volume 9.6 fL (9.4-12.4); Monocytes # 0.6 K/mcL (0.0-1.3); Monocytes % 9.9 %; Neutrophils # 3.2 K/mcL (1.6-8.9); Platelet Count 204 K/mcL (140-400); Red Blood Count 4.26 M/mcL (4.19-5.50); Red Cell Distribution Width 14.3 % (11.5-14.5); Segmented Neutrophils % 55.9 %
[2018-12-01 04:53] LABS: INR 1.2; Prothrombin Time 13.2 Seconds (9.4-12.1)
[2018-12-01 05:08] LABS: BUN/Creatinine Ratio 8 (6-26); Blood Urea Nitrogen 22 mg/dL (8-23); Carbon Dioxide 21 mEq/L (23-29); Chloride 106 mEq/L (98-107); Glucose 116 mg/dL (70-105); Osmolality,Calculated 294 (280-300); Potassium 4.2 mEq/L (3.5-5.1); Sodium 140 mEq/L (136-145); Troponin I < 0.03 ng/mL (< 0.04); eGFR For Non-African Americans 23 (> 60)
[2018-12-01] MEDS ORDERED: Nitroglycerin 1 INCH/GM PACKET TP ONE (05:33)
[2018-12-01] MEDS ORDERED: Nitroglycerin 0.4 MG TAB.SUBL SL PRN (09:11)
[2018-12-01] MEDS ORDERED: *HR* HYDROcodone/Acet 5/325 mg TABLET PO PRN (09:11)
[2018-12-01] MEDS ORDERED: Acetaminophen 325 MG TABLET PO PRN (09:11)
[2018-12-01] MEDS ORDERED: Isosorbide MONOnitrate (24 HR) 60 MG TAB.ER.24H PO SCH (09:15)
[2018-12-01] MEDS ORDERED: hydroCHLOROthiazide 25 MG TABLET PO SCH (09:15)
[2018-12-01] MEDS ORDERED: levoFLOXacin 500 MG TABLET PO SCH (09:15)
[2018-12-01] MEDS ORDERED: Naloxone 0.4 MG/ML INJ IVP PRN (09:17)
--- NOTE | 2018-12-01 09:28 | Internal Med History&Physical ---
Date of Encounter: 12/01/18 Time of Encounter: 09:23 Internal Medicine - H&P: HPI Chief complaint: chest pain Admitted From: Home Plans for Post Hospital Care: Home History of present illness: Mr. Waller is a 78 year old male who has history of COPD CAD stated post CABG, Hypertension, diverticulitis presenting emergency room for chest pain. Chest pain started last night 2 AM while he was watching TV. Pains located in the mid of chest, no radiation, pressure-like 8 out of 10 and lasts for few hours until he got to the emergency room, took nitroglycerin and aspirin. He denies diaphoresis dizziness. He does have some nausea now resolved. He he had a stress test in September 2017 was negative but had prior infarct. His negative troponin, negative chest x-ray. patient is going to be admitted for chest pain workup. Past Med Surg Social Fam HX - Past Medical History Medical history: coronary artery disease, CVA, hyperlipidemia, hypertension, m yocardial infarction, renal disease, TIA Additional medical history: stg 4 renal Psychiatric history: no psych history - Past Surgical History Surgical History: carotid endarterectomy, cataract, coronary bypass (CABG) Additional surgical history: cabag triple - Social History Smoking Status: Former smoker Smokeless Tobacco Status: No Alcohol use: none Drug use: none - Family History Father Living Status: Hx Family Cardiac Disorders: No Hx Family Respiratory Disorders: No Hx Family Cancer: No Hx Family GI Disorders: No Hx Family Endocrine Disorder: No Hx Family Neuromuscular Disorders: No Hx Family Neurologic Disorders: Yes (cva) Hx Family HEENT Disorders: No Hx Family Autoimmune Disorders: No Mother Adopted: No Living Status: Hx Family Cardiac Disorders: No Hx Family Respiratory Disorders: No Hx Family Cancer: Yes (breast) Hx Family GI Disorders: (cirrohois) Hx Family Endocrine Disorder: Yes (dm) Hx Family Neuromuscular Disorders: No Hx Family Neurologic Disorders: No Hx Family HEENT Disorders: No Hx Family Autoimmune Disorders: No Daughter Hx Family Cardiac Disorders: Yes Internal Medicine - H&P: Meds Acetaminophen [Tylenol] 325 mg PO Q6HR PRN 09/21/15 [History] Aliskiren [Tekturna] 300 mg PO QAM 09/21/15 [History] Allopurinol [Zyloprim] 100 mg PO QAM 09/21/15 [History] Aspirin Enteric Coated [Aspirin EC] 81 mg PO QPM 09/21/15 [History] Calcium Carbonate/Vitamin D3 [Calcium 600 + D Tablet] 1 each PO QAM 09/21/15 [History] Cholecalciferol (Vitamin D3) [Vitamin D] 2,000 unit PO BID 09/21/15 [History] Clopidogrel [Plavix] 75 mg PO QPM 09/21/15 [History] Docosahexanoic Acid/Epa [Fish Oil Concentrate Softgel] 1,000 mg PO QID 09/21/15 [History] Gabapentin [Neurontin] 600 mg PO QID 09/21/15 [History] Hydrocodone/Acetaminophen [[place] 5-325 Tablet] 1 tab PO Q6H PRN 09/21/15 [History] Nitroglycerin [Nitrostat] 0.4 mg SL AD PRN 09/21/15 [History] Pantoprazole Sodium [Protonix] 40 mg PO QPM 09/21/15 [History] Potassium Chloride 20 meq PO BID 09/21/15 [History] amLODIPine [Norvasc] 10 mg PO QPM 09/21/15 [History] hydroCHLOROthiazide [Hydrochlorothiazide] 50 mg PO QAM 09/21/15 [History] Isosorbide MONOnitrate (24 HR) [Imdur] 60 mg PO DAILY #30 tab.er.24h 09/22/15 [Rx] Ferrous Sulfate [Iron] 325 mg PO DAILY 03/21/16 [History] L. Acidophilus/L.bulgaricus [Lactinex Chewable Tablet] 1 each PO BID #60 tab.chew 06/16/16 [Rx] Albuterol Sulfate [Ventolin Hfa] 1 - 2 puff IH Q4-6H PRN 10/14/17 [History] Pravastatin Sodium [Pravachol] 40 mg PO DAILY 10/14/17 [History] Carvedilol [Coreg] 25 mg PO BIDWM #60 tablet 10/17/17 [Rx] levoFLOXacin [Levaquin] 500 mg PO DAILY #5 tablet 10/17/17 [Rx] Polyethylene Glycol 3350 [MiraLAX] 17 gm PO DAILY #7 powd.pack 10/24/17 [Rx] 3 Allergy/AdvReac Type Severity Reaction Status Date / Time Erythromycin Base Allergy Anaphylaxis Verified 11/04/17 02:32 ibuprofen Allergy Hives Verified 11/04/17 02:32 Tetanus Vaccines and Toxoid Allergy Anaphylaxis Verified 11/04/17 02:32 [Tetanus Vaccines & Toxoid] Hydralazine AdvReac Headache Verified 11/04/17 02:32 nsaids Allergy Hives Uncoded 11/04/17 02:32 All Systems PM: A 10-system review of systems was performed and is negative for pertinent findings except as documented above in the HPI. - Constitutional Vitals: Temp Pulse Resp BP Pulse Ox 98.3 F 83 20 162/83 95 12/01/18 07:48 12/01/18 07:48 12/01/18 07:48 12/01/18 07:48 12/01/18 07:48 General appearance: Present: A&O X 3, pleasant Exam: CONSTITUTIONAL: Patient appears as an age appropriate male well developed, in no acute distress. EYES Clear sclerae, bilateral pupils are equal, reactive to light and accommodation. Extraocular movements are intact RESPIRATORY: No accessory muscle use, bilateral clear to auscultation, no wheezing, no crackles/rales. CARDIOVASCULAR: Regular heart rate, normal S1 and S2, no murmurs GASTROINTESTINAL: bowel sounds present, soft, no tenderness. No hepatosplenomegaly. No bilateral CVA tenderness MUSCULOSKELETAL: Joints in normal range of motion, no clubbing, no edema, no cyanosis. Bilateral peripheral pulses 2+ LYMPHATIC no lymphadenopathy in neck, groin and axilla bilaterally, no thyromegaly. NEUROLOGIC: CN II to XII are grossly intact, no focal neurological deficit. Deep tendon reflexes 2+ bilaterally. Normal light touch sensation to upper and lower extremity PSYCHIATRIC: Oriented x3, with good insight, mood is euthymic. No hallucinations or delusions. SKIN: Skin warm and dry, no rashes, no open wound. Internal Med - H&P Results - Labs CBC & Chem 7: 12/01/18 04:37 12/01/18 04:37 Labs: Short CBC 12/01/18 Range/Units 04:37 WBC 5.7 (4.3-11.1) K/mcL Hgb 12.6 L (12.9-16.9) g/dL Hct 37.6 (37.5-50.1) % Plt Count 204 (140-400) K/mcL Neutrophils # 3.2 (1.6-8.9) K/mcL BMP 12/01/18 04:37 Sodium 140 Potassium 4.2 Chloride 106 Carbon Dioxide 21 L BUN 22 Creatinine 2.70 H Glucose 116 H Calcium 10.0 Cardiac Enzymes 12/01/18 Range/Units 04:37 Troponin I < 0.03 (< 0.04) ng/mL - Impressions ITS Impressions Chest X-Ray 12/01/18 04:07 IMPRESSION: No acute findings. D/ / Silver Clinton / Silver Clinton Interpreting Provider: Silver Clinton - Assessment and plan (1) Chest pain Current Visit: Yes Status: Acute Assessment and plan: typical chest pain concerning for acute coronary syndrome, we will follow up troponin EKG, order stress test and echocardiogram. His last stress test in September 2017, continue aspirin nitroglycerin Qualifiers: Chest pain type: chest pain due to myocardial ischemia Ischemic chest pain type: stable angina pectoris Qualified Code(s): I20.8 - Other forms of angina pectoris (2) COPD (chronic obstructive pulmonary disease) Current Visit: Yes Status: Chronic Assessment and plan: Stable, continue home regimen albuterol as needed, he is not on home O2 Qualifiers: COPD type: emphysema Emphysema type: unspecified Qualified Code(s): J43.9 - Emphysema, unspecified (3) Hypertension Current Visit: Yes Status: Chronic Assessment and plan: Continue home medication Qualifiers: Hypertension type: essential hypertension Qualified Code(s): I10 - Essential (primary) hypertension (4) Hyperlipidemia Current Visit: Yes Status: Chronic Qualifiers: Hyperlipidemia type: unspecified Qualified Code(s): E78.5 - Hyperlipidemia, unspecified (5) CKD (chronic kidney disease) stage 4, GFR 15-29 ml/min Current Visit: Yes Status: Chronic Assessment and plan: Stage IV kidney disease, avoid any nephrotoxin close monitor kidney function (6) Diverticulitis Current Visit: Yes Status: Acute Assessment and plan: Patient was diagnosed acute diverticulitis a week ago, we will continue Levaquin (7) CAD in [place] artery Current Visit: Yes Status: Acute Assessment and plan: 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
[2018-12-01] MEDS ORDERED: D5% in 0.45% NACL 1,000 ML IVC SCH (09:30)
[2018-12-01] MEDS: *HR* Heparin 5,000 UNIT/ML VIAL SQ SCH ×2 (10:48→12:04)
[2018-12-01] MEDS ORDERED: Lactobacillus 1 EACH CAP.SPRINK PO SCH (11:00)
[2018-12-01 11:36] VITALS: BP 170/74
[2018-12-01] MEDS ORDERED: Gabapentin 300 MG CAPSULE PO SCH (13:00)
--- NOTE | 2018-12-01 17:29 | Electrocardiograph Report ---
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
[2018-12-01] MEDS ORDERED: Aspirin Enteric Coated 81 MG Tablet PO SCH (18:00)
[2018-12-02] MEDS ORDERED: levoFLOXacin 500 MG TABLET PO SCH (09:00)
[2018-12-02] MEDS ORDERED: ALISKIREN 300 MG PO SCH (09:00)
== END 2018-12-01 12:39 | disposition left against medical advice (07) ==
LOC: EMEROOARM 04:00 → 2SOUTHHOLD 04:00
PROVIDERS: ADMIT Internal Medicine; ATTEND Internal Medicine